=== PATIENT | female | born 1960 | race Caucasian/White ===

== ENCOUNTER 2016-07-14 12:28 | Emergency (ER) | payer MEDICAID ==
[~2016-07-14] VITALS: Ht 167.6 cm; Wt 85.7 kg
[~2016-07-14 12:28] MED LIST: TRIA25CA
[2016-07-14 13:34] VITALS: BP 165/78
[2016-07-14] MEDS ORDERED: METHOCARBAMOL 500 MG TAB PO ONE (13:45)
[2016-07-14] MEDS ORDERED: ONDANSETRON HCL 4 MG/2 ML VIAL IM ONE (13:45)
[2016-07-14] MEDS ORDERED: HYDROmorphone HCL 2 MG/ML VL IM ONE (13:45)
== END 2016-07-14 14:22 | disposition home or self-care (01) ==
LOC: ER 12:30
DX: G89.29 Other chronic pain (principal); M54.5 Low back pain; I10 Essential (primary) hypertension; F17.210 Nicotine dependence, cigarettes, uncomplicated; E78.5 Hyperlipidemia, unspecified; Z90.49 Acquired absence of other specified parts of digestive tract; Z98.51 Tubal ligation status; Z79.899 Other long term (current) drug therapy
CPT/HCPCS: 96372; 99284; J1170; J2405

== ENCOUNTER 2018-06-07 09:48 | Emergency (ER) | payer MEDICAID ==
[~2018-06-07] VITALS: Ht 170.2 cm; Wt 81.6 kg
[2018-06-07 10:55] LABS: Basophils # (auto) 0.1 uL; Basophils % (auto) 1.1 % (0.0-2.0); Eosinophils # (auto) 0.2 uL; Eosinophils % (auto) 2.1 % (0.0-7.0); Hematocrit 50.6 % (36.0-46.0); Hemoglobin 17.4 g/dL (12.2-16.2); Lymphocytes % (auto) 21.9 % (10.0-50.0); Mean Corpuscular Hemoglobin 32.1 pg (28.0-32.0); Mean Corpuscular Hgb Conc. 34.3 g/dL (32.0-36.0); Mean Corpuscular Volume 93.4 fL (80.0-100.0); Monocytes # (auto) 0.8 uL; Monocytes % (auto) 8.8 % (0.0-12.0); Neutrophils # (auto) 6.1 uL; Neutrophils % (auto) 66.1 % (37.0-80.0); Nucleated Red Blood Cells % 0.1 %; Platelet Count (auto) 218 10^3/uL (140-450); Red Blood Cells 5.42 10^6/uL (4.0-5.20); Red Cell Distribution Width 12.8 % (11.8-14.3); White Blood Cell 9.3 10^3/uL (4.4-10.8)
[2018-06-07 11:13] LABS: Urine Bacteria FEW /hpf (None Seen); Urine Blood Negative /uL (Negative); Urine Mucus FEW (None Seen); Urine Specific Gravity 1.017 (1.001-1.035); Urine WBC 10 /hpf (0 - 5)
[2018-06-07 11:18] LABS: BUN/Creatinine Ratio 15.9; Calcium 9.4 mg/dL (8.5-10.1); Potassium 3.9 mmol/L (3.5-5.1)
[2018-06-07 11:21] LABS: Bilirubin, Total 0.4 mg/dL (0.2-1.0); Total Protein 7.7 g/dL (6.4-8.2)
[2018-06-07 14:45] VITALS: BP 153/96
== END 2018-06-07 14:47 | disposition home or self-care (01) ==
LOC: ER 09:48
DX: N39.0 Urinary tract infection, site not specified (principal); E86.0 Dehydration; E78.5 Hyperlipidemia, unspecified; I10 Essential (primary) hypertension; F12.90 Cannabis use, unspecified, uncomplicated; Z85.048 Personal history of other malignant neoplasm of rectum, rectosigmoid junction, and anus; Z79.899 Other long term (current) drug therapy
CPT/HCPCS: 36415; 74176; 80053; 81001; 81025; 83690; 85025; 93005

== ENCOUNTER 2018-11-30 23:29 | Emergency (ER) | payer MEDICAID ==
[~2018-11-30] VITALS: Ht 170.2 cm; Wt 81.6 kg
[2018-12-01 04:26] VITALS: BP 115/45
== END 2018-12-01 05:34 | disposition home or self-care (01) ==
LOC: ER 23:32
DX: S52.501A Unspecified fracture of the lower end of right radius, initial encounter for closed fracture (principal); I10 Essential (primary) hypertension; E78.00 Pure hypercholesterolemia, unspecified; Z79.899 Other long term (current) drug therapy; Z90.49 Acquired absence of other specified parts of digestive tract; Z90.89 Acquired absence of other organs; W51.XXXA Accidental striking against or bumped into by another person, initial encounter; Y93.89 Activity, other specified; Y92.89 Other specified places as the place of occurrence of the external cause; Y99.8 Other external cause status
CPT/HCPCS: 29125; 73110; 73130

== ENCOUNTER 2020-11-17 21:03 | Emergency (ER) | payer MEDICAID ==
[~2020-11-17] VITALS: Ht 170.2 cm; Wt 90.7 kg
[2020-11-17 22:47] LABS: Basophils # (auto) 0.1 10 ^3/uL (0-0.2); Basophils % (auto) 0.8 % (0.0-2.0); Eosinophils # (auto) 0.3 10 ^3/uL (0-0.8); Eosinophils % (auto) 2.7 % (0.0-7.0); Hematocrit 44.3 % (36.0-46.0); Hemoglobin 15.3 g/dL (12.2-16.2); Lymphocytes # (auto) 3.3 10 ^3/uL (0.4-5.4); Lymphocytes % (auto) 29.8 % (10.0-50.0); Mean Corpuscular Hgb Conc. 34.5 g/dL (32.0-36.0); Mean Corpuscular Volume 89.6 fL (80.0-100.0); Monocytes # (auto) 0.7 10 ^3/uL (0-1.3); Monocytes % (auto) 6.6 % (0.0-12.0); Neutrophils # (auto) 6.7 10 ^3/uL (1.6-8.6); Neutrophils % (auto) 60.1 % (37.0-80.0); Nucleated Red Blood Cells % 0.9 %; Platelet Count (auto) 247 10^3/uL (140-450); Red Blood Cells 4.94 10^6/uL (4.0-5.20); Red Cell Distribution Width 13.4 % (11.8-14.3); White Blood Cell 11.1 10^3/uL (4.4-10.8)
[2020-11-17 23:02] LABS: Calcium 9.8 mg/dL (8.5-10.1); Potassium 4.2 mmol/L (3.5-5.1)
[2020-11-17 23:08] LABS: Albumin 3.9 g/dL (3.4-5.0); BUN/Creatinine Ratio 18.4; Bilirubin, Total 0.3 mg/dL (0.2-1.0); Total Protein 7.5 g/dL (6.4-8.2)
[2020-11-18 01:52] LABS: Urine Bacteria FEW /hpf (None Seen); Urine Blood Negative /uL (Negative); Urine Specific Gravity 1.015 (1.001-1.035); Urine WBC 2 /hpf (0 - 5)
[2020-11-18 08:03] VITALS: BP 160/82
== END 2020-11-18 08:04 | disposition home or self-care (01) ==
LOC: ER 21:03
DX: K57.92 Diverticulitis of intestine, part unspecified, without perforation or abscess without bleeding (principal); K44.9 Diaphragmatic hernia without obstruction or gangrene; R10.13 Epigastric pain; I10 Essential (primary) hypertension; Z90.49 Acquired absence of other specified parts of digestive tract; Z85.048 Personal history of other malignant neoplasm of rectum, rectosigmoid junction, and anus; Z98.890 Other specified postprocedural states; Z98.51 Tubal ligation status
CPT/HCPCS: 36415; 74176; 80053; 81001; 82150; 83690; 85025

== ENCOUNTER 2021-01-03 10:07 | Emergency (ER) | payer MEDICAID ==
[~2021-01-03] VITALS: Ht 175.3 cm; Wt 86.2 kg
[2021-01-03 10:59] LABS: Basophils # (auto) 0.1 10 ^3/uL (0-0.2); Basophils % (auto) 0.8 % (0.0-2.0); Eosinophils # (auto) 0.2 10 ^3/uL (0-0.8); Eosinophils % (auto) 1.3 % (0.0-7.0); Hematocrit 41.6 % (36.0-46.0); Hemoglobin 13.9 g/dL (12.2-16.2); Lymphocytes # (auto) 3.2 10 ^3/uL (0.4-5.4); Lymphocytes % (auto) 26.7 % (10.0-50.0); Mean Corpuscular Hemoglobin 30.8 pg (28.0-32.0); Mean Corpuscular Hgb Conc. 33.3 g/dL (32.0-36.0); Mean Corpuscular Volume 92.4 fL (80.0-100.0); Monocytes # (auto) 0.8 10 ^3/uL (0-1.3); Monocytes % (auto) 6.3 % (0.0-12.0); Neutrophils # (auto) 7.9 10 ^3/uL (1.6-8.6); Neutrophils % (auto) 64.9 % (37.0-80.0); Red Cell Distribution Width 13.4 % (11.8-14.3); White Blood Cell 12.2 10^3/uL (4.4-10.8)
[2021-01-03 11:24] LABS: Albumin 3.3 g/dL (3.4-5.0); Anion Gap 8 (5-15); Blood Urea Nitrogen 52 mg/dL (7-18); Calcium 8.9 mg/dL (8.5-10.1); Carbon Dioxide 23 mmol/L (21-32); Chloride 106 mmol/L (98-107); Glucose 217 mg/dL (74-106); Magnesium 2.1 mg/dL (1.6-2.6); Potassium 4.1 mmol/L (3.5-5.1); Sodium 137 mmol/L (136-145)
[2021-01-03 11:28] LABS: Alanine Aminotransferase 228 U/L (13-56); Alkaline Phosphatase 190 U/L (45-117); Aspartate Aminotransferase 54 U/L (15-37); BUN/Creatinine Ratio 59.1; Bilirubin, Total 0.6 mg/dL (0.2-1.0); GFR African American 84 mL/min; GFR Non-African American 70 mL/min
[2021-01-03] MEDS ORDERED: IPRATROPIUM BROM 0.5 MG/2.5ML INH SOL NEB ONE (12:30)
[2021-01-03] MEDS ORDERED: ALBUTEROL SULF 2.5 MG/0.5ML(0.5%) NEB SOLN NEB ONE (12:30)
[2021-01-03] MEDS ORDERED: SODIUM CHLORIDE 0.9% 1,000 ML IV ONE ×2 (12:30→15:15)
[2021-01-03] MEDS ORDERED: ONDANSETRON HCL 4 MG/2 ML VIAL IV ONE (12:30)
[2021-01-03] MEDS ORDERED: METOCLOPRAMIDE HCL 5MG/ml INJ 2ml VIAL IV ONE (15:15)
[2021-01-03 17:12] LABS: Urine Bacteria FEW /hpf (None Seen); Urine Blood Negative /uL (Negative); Urine Hyaline Cast FEW /lpf (0 - 2); Urine Specific Gravity 1.019 (1.001-1.035); Urine WBC <1 /hpf (0 - 5)
[2021-01-03 22:05] VITALS: BP 157/84
== END 2021-01-03 23:30 | disposition home or self-care (01) ==
LOC: ER 10:07
DX: R06.02 Shortness of breath (principal); M54.9 Dorsalgia, unspecified; R11.0 Nausea; J44.9 Chronic obstructive pulmonary disease, unspecified; E78.5 Hyperlipidemia, unspecified; I10 Essential (primary) hypertension; Z90.49 Acquired absence of other specified parts of digestive tract; Z90.89 Acquired absence of other organs; Z79.899 Other long term (current) drug therapy
CPT/HCPCS: 36415; 71045; 80053; 81001; 83735; 84484; 85025; 93005; 94640; 96361; 96374; 96375; 99285; J2405; J2765; J7030; J7644

== ENCOUNTER 2021-12-01 02:01 | Emergency (ER) | payer MEDICAID ==
[~2021-12-01] VITALS: Ht 167.6 cm; Wt 88.0 kg
[2021-12-01] MEDS: IPRATROPIUM BROM 0.5 MG/2.5ML INH SOL NEB ONE ×2 (03:56→04:01)
[2021-12-01] MEDS: ALBUTEROL SULF 2.5 MG/0.5ML(0.5%) NEB SOLN NEB ONE ×2 (03:56→04:01)
[2021-12-01 04:03] LABS: Basophils # (auto) 0.1 10 ^3/uL (0-0.2); Eosinophils # (auto) 0.1 10 ^3/uL (0-0.8); Mean Corpuscular Volume 82.2 fL (80.0-100.0)
[2021-12-01 04:05] LABS: Basophils % (auto) 0.9 % (0.0-2.0); Eosinophils % (auto) 0.8 % (0.0-7.0); Hematocrit 33.2 % (36.0-46.0); Hemoglobin 10.7 g/dL (12.2-16.2); Lymphocytes # (auto) 1.5 10 ^3/uL (0.4-5.4); Lymphocytes % (auto) 16.6 % (10.0-50.0); Mean Corpuscular Hemoglobin 26.4 pg (28.0-32.0); Mean Corpuscular Hgb Conc. 32.2 g/dL (32.0-36.0); Monocytes # (auto) 0.7 10 ^3/uL (0-1.3); Monocytes % (auto) 7.6 % (0.0-12.0); Neutrophils # (auto) 6.5 10 ^3/uL (1.6-8.6); Neutrophils % (auto) 74.1 % (37.0-80.0); Red Blood Cells 4.04 10^6/uL (4.0-5.20); White Blood Cell 8.8 10^3/uL (4.4-10.8)
[2021-12-01 04:08] LABS: INR 0.99 (0.9-1.15)
[2021-12-01 04:23] LABS: BUN/Creatinine Ratio 11.6; Calcium 9.2 mg/dL (8.5-10.1); Potassium 3.4 mmol/L (3.5-5.1)
[2021-12-01 04:26] LABS: Bilirubin, Total 0.3 mg/dL (0.2-1.0); Total Protein 7.3 g/dL (6.4-8.2)
[2021-12-01 06:30] VITALS: BP 127/85
== END 2021-12-01 05:11 | disposition home or self-care (01) ==
LOC: ER 02:01 → EDBD 02:01 → ER 05:11
DX: R06.02 Shortness of breath (principal); T59.811A Toxic effect of smoke, accidental (unintentional), initial encounter; J44.9 Chronic obstructive pulmonary disease, unspecified; E78.5 Hyperlipidemia, unspecified; I10 Essential (primary) hypertension; Y92.89 Other specified places as the place of occurrence of the external cause
CPT/HCPCS: 36415; 80053; 83880; 84484; 85025; 85610; 85730; 93005

== ENCOUNTER 2023-08-31 10:52 | Inpatient (IN) | payer MEDICAID ==
[~2023-08-31] VITALS: Ht 170.2 cm; Wt 86.7 kg
[2023-08-31 11:40] LABS: Basophils # (auto) 0.1 10 ^3/uL (0-0.2); Eosinophils # (auto) 0.1 10 ^3/uL (0-0.8); Monocytes # (auto) 1.4 10 ^3/uL (0-1.3)
[2023-08-31 11:42] LABS: Basophils % (auto) 0.8 % (0.0-2.0); Eosinophils % (auto) 0.8 % (0.0-7.0); Hematocrit 40.6 % (36.0-46.0); Hemoglobin 13.4 g/dL (12.2-16.2); Lymphocytes # (auto) 2.6 10 ^3/uL (0.4-5.4); Lymphocytes % (auto) 16.4 % (10.0-50.0); Mean Corpuscular Hemoglobin 28.4 pg (28.0-32.0); Mean Corpuscular Volume 85.9 fL (80.0-100.0); Monocytes % (auto) 8.8 % (0.0-12.0); Neutrophils # (auto) 11.6 10 ^3/uL (1.6-8.6); Neutrophils % (auto) 73.2 % (37.0-80.0); Red Blood Cells 4.72 10^6/uL (4.0-5.20); Red Cell Distribution Width 14.2 % (11.8-14.3); White Blood Cell 15.8 10^3/uL (4.4-10.8)
[2023-08-31 11:51] LABS: Alanine Aminotransferase 69 U/L (7-40); Albumin 3.9 g/dL (3.2-4.8); Alkaline Phosphatase 597 U/L (46-116); Anion Gap 2 (5-15); Aspartate Aminotransferase 29 U/L (13-40); BUN/Creatinine Ratio 8.9 (10.0-20.0); Bilirubin, Total 0.4 mg/dL (0.2-1.0); Blood Urea Nitrogen 7 mg/dL (9-23); Calcium 9.6 mg/dL (8.7-10.4); Carbon Dioxide 27 mmol/L (20-30); Chloride 103 mmol/L (98-107); Glucose 185 mg/dL (74-106); Lipase 31 U/L (12-53); Potassium 3.9 mmol/L (3.5-5.1); Sodium 132 mmol/L (136-145); Total Protein 7.2 g/dL (5.7-8.2)
[2023-08-31] MEDS: metroNIDAZOLE 500MG/100ML 100 ML IV ONE (12:20)
[2023-08-31 12:37] LABS: Urine Bacteria MOD /hpf (None Seen); Urine Blood Negative /uL (Negative); Urine Clarity Clear (Clear); Urine Color Yellow (Yellow); Urine Mucus FEW (None Seen); Urine Protein, UAD TRACE (Negative); Urine Specific Gravity 1.018 (1.001-1.035); Urine Urobilinogen Normal (Negative); Urine WBC 7 /hpf (0 - 5); Urine pH 7.5 (5.0-8.0)
[2023-08-31] MEDS ORDERED: MORPHINE SULFATE 4 MG/ML SYR/VIAL IV ONE (12:45)
[2023-08-31] MEDS: HYDROcodone-ACET 10/325MG TAB PO ONE (12:55)
[2023-08-31] MEDS: ONDANSETRON HCL 4 MG/2 ML VIAL IV ONE (12:56)
[2023-08-31] MEDS: PIPERACILLIN-TAZOB 3.375GM 100 ML IV ONE (12:56)
[2023-08-31] MEDS: SODIUM CHLORIDE 0.9% 1,000 ML IV SCH (13:30)
[2023-08-31] MEDS ORDERED: DEXTROSE (50%) 50ML SYRG IV PRN (14:15)
[2023-08-31 14:47] VITALS: PULSE 74; RESP 19; O2SAT 96
[2023-08-31] MEDS: ONDANSETRON HCL 4 MG/2 ML VIAL IV PRN (16:36)
[2023-08-31] MEDS: MORPHINE SULFATE INJ 2 MG/ml SYRG IV PRN (16:37)
[2023-08-31] MEDS: IOHEXOL 300 MG/ML 100ML BOTTLE IJ ONE (16:40)
[2023-08-31] MEDS: InsuLIN REG 1unit/0.01ml Soln (100units/ml) SC SCH (19:52)
[2023-08-31] MEDS: ACCU-CHEK COMFORT CURVE STRIP VI SCH (19:52)
[2023-08-31 20:47] LABS: INR 1.04 (0.9-1.15); Prothrombin Time 10.9 sec (9.3-11.8)
[2023-08-31] MEDS: PIPERACILLIN-TAZOB 3.375GM 100 ML IV SCH (22:36)
[2023-09-01] VITALS (8 sets, daily range): BP systolic 107–156; BP diastolic 50–83; PULSE 72–92; RESP 17–19; TEMP 97.5–99.1; O2SAT 93–97
[2023-09-01 06:33] LABS: Basophils # (auto) 0.1 10 ^3/uL (0-0.2); Basophils % (auto) 0.8 % (0.0-2.0); Eosinophils # (auto) 0.2 10 ^3/uL (0-0.8); Eosinophils % (auto) 1.9 % (0.0-7.0); Hematocrit 38.7 % (36.0-46.0); Hemoglobin 12.9 g/dL (12.2-16.2); Lymphocytes # (auto) 1.6 10 ^3/uL (0.4-5.4); Lymphocytes % (auto) 15.5 % (10.0-50.0); Mean Corpuscular Hemoglobin 28.8 pg (28.0-32.0); Mean Corpuscular Hgb Conc. 33.4 g/dL (32.0-36.0); Mean Corpuscular Volume 86.3 fL (80.0-100.0); Monocytes % (auto) 9.6 % (0.0-12.0); Neutrophils # (auto) 7.5 10 ^3/uL (1.6-8.6); Neutrophils % (auto) 72.2 % (37.0-80.0); Red Blood Cells 4.48 10^6/uL (4.0-5.20); Red Cell Distribution Width 14.3 % (11.8-14.3); White Blood Cell 10.3 10^3/uL (4.4-10.8)
[2023-09-01 06:50] LABS: Alanine Aminotransferase 372 U/L (7-40); Albumin 3.8 g/dL (3.2-4.8); Anion Gap 3 (5-15); Aspartate Aminotransferase 412 U/L (13-40); BUN/Creatinine Ratio 9.1 (10.0-20.0); Bilirubin, Total 0.9 mg/dL (0.2-1.0); Blood Urea Nitrogen 7 mg/dL (9-23); Calcium 9.3 mg/dL (8.5-10.1); Carbon Dioxide 26 mmol/L (20-30); Chloride 105 mmol/L (98-107); Glucose 120 mg/dL (74-106); Potassium 3.4 mmol/L (3.5-5.1); Sodium 134 mmol/L (136-145); Total Protein 6.5 g/dL (5.7-8.2)
[2023-09-01 06:57] LABS: Alkaline Phosphatase 1197 U/L (46-116)
[2023-09-01] MEDS: POTASSIUM CHLORIDE 40 MEQ, LIDOCAINE 1% (LOCAL ANESTH.) 4 ML in SODIUM CHL 0.9% 250 ML IV ONE (09:26)
[2023-09-01] MEDS: hydrALAZINE HCL 20 MG/ML VL IV PRN (22:07)
[2023-09-01] MEDS: DOCUSATE SOD 100 MG CAP PO PRN (22:13)
[2023-09-02] VITALS (8 sets, daily range): BP systolic 136–163; BP diastolic 63–97; PULSE 73–85; RESP 16–20; TEMP 98.1–99; O2SAT 94–100
[2023-09-02] MEDS: HYDROcodone-ACET 5/325MG TAB PO PRN (02:51)
[2023-09-02] MEDS ORDERED: ASPI-325 PO (03:23)
[2023-09-02] MEDS ORDERED: ESCI1TAB36 PO (03:23)
[2023-09-02] MEDS ORDERED: ALPR0.255 PO (03:23)
[2023-09-02] MEDS ORDERED: ATOR20TA50 PO (03:23)
[2023-09-02] MEDS ORDERED: ATEN-60 PO (03:23)
[2023-09-02] MEDS ORDERED: MEMA1TAB3 PO (03:23)
[2023-09-02] MEDS ORDERED: LOSA100T25 PO (03:29)
[2023-09-02 05:47] LABS: Basophils # (auto) 0.1 10 ^3/uL (0-0.2); Basophils % (auto) 0.6 % (0.0-2.0); Eosinophils # (auto) 0.1 10 ^3/uL (0-0.8); Eosinophils % (auto) 0.8 % (0.0-7.0); Hematocrit 36.9 % (36.0-46.0); Hemoglobin 12.1 g/dL (12.2-16.2); Lymphocytes # (auto) 1.5 10 ^3/uL (0.4-5.4); Lymphocytes % (auto) 11.3 % (10.0-50.0); Mean Corpuscular Hemoglobin 28.5 pg (28.0-32.0); Mean Corpuscular Hgb Conc. 32.9 g/dL (32.0-36.0); Mean Corpuscular Volume 86.5 fL (80.0-100.0); Monocytes % (auto) 7.2 % (0.0-12.0); Neutrophils # (auto) 10.9 10 ^3/uL (1.6-8.6); Neutrophils % (auto) 80.1 % (37.0-80.0); Red Blood Cells 4.27 10^6/uL (4.0-5.20); Red Cell Distribution Width 14.3 % (11.8-14.3); White Blood Cell 13.6 10^3/uL (4.4-10.8)
[2023-09-02 06:07] LABS: Alanine Aminotransferase 199 U/L (7-40); Albumin 3.4 g/dL (3.2-4.8); Alkaline Phosphatase 899 U/L (46-116); Anion Gap 3 (5-15); Aspartate Aminotransferase 102 U/L (13-40); BUN/Creatinine Ratio 8.8 (10.0-20.0); Bilirubin, Total 0.5 mg/dL (0.2-1.0); Blood Urea Nitrogen 5 mg/dL (9-23); Calcium 9.2 mg/dL (8.7-10.4); Carbon Dioxide 24 mmol/L (20-30); Chloride 108 mmol/L (98-107); Glucose 128 mg/dL (74-106); Potassium 3.1 mmol/L (3.5-5.1); Sodium 135 mmol/L (136-145); Total Protein 6.4 g/dL (5.7-8.2)
[2023-09-02 06:56] LABS: Amphetamine Screen, Urine Neg (NEGATIVE); Barbiturate Scree,Urine Neg (NEGATIVE); Benzodiazephine Screen, Urine Neg (NEGATIVE); Cocaine Screen, Urine Neg (NEGATIVE); Opiate Scree,Urine Pos (NEGATIVE)
[2023-09-02 06:57] LABS: Cannabinoid Screen, Urine Pos (NEGATIVE); Phencyclidine Screen, Urine Neg (NEGATIVE)
[2023-09-02] MEDS: PIPERACILLIN-TAZOB 3.375GM 100 ML IV SCH (12:29)
[2023-09-02] MEDS: HYDROmorphone HCL 2 MG/ML VL/or syr IV PRN (12:46)
[2023-09-02] MEDS: POTASSIUM CHLORIDE 60 MEQ, LIDOCAINE 1% (LOCAL ANESTH.) 6 ML in SODIUM CHL 0.9% 500 ML IV ONE (17:15)
[2023-09-02] MEDS ORDERED: DEXTROSE (50%) 50ML SYRG IV SCH (20:00)
[2023-09-02] MEDS ORDERED: TPN PER PHARMACY 0 ML IV SCH (20:00)
[2023-09-02] MEDS: MORPHINE SULFATE INJ 2 MG/ml SYRG IV ONE (21:24)
[2023-09-02] MEDS: KETOROLAC TROMETH 30 MG/ML 1ML VIAL IV ONE (23:13)
[2023-09-02] MEDS: AMINO ACID INFUSION IN D10W 1,000 ML IV SCH (23:14)
[2023-09-03] VITALS (7 sets, daily range): BP systolic 153–174; BP diastolic 71–92; PULSE 76–91; RESP 16–24; TEMP 97.4–98.7; O2SAT 94–98
[2023-09-03] MEDS: InsuLIN REG 1unit/0.01ml Soln (100units/ml) SC SCH (00:51)
[2023-09-03] MEDS: ACCU-CHEK COMFORT CURVE STRIP VI SCH (00:51)
[2023-09-03 06:51] LABS: Basophils # (auto) 0.1 10 ^3/uL (0-0.2); Basophils % (auto) 1.2 % (0.0-2.0); Eosinophils # (auto) 0.2 10 ^3/uL (0-0.8); Eosinophils % (auto) 1.9 % (0.0-7.0); Hematocrit 38.4 % (36.0-46.0); Hemoglobin 12.3 g/dL (12.2-16.2); Lymphocytes # (auto) 2.3 10 ^3/uL (0.4-5.4); Lymphocytes % (auto) 19.1 % (10.0-50.0); Mean Corpuscular Hemoglobin 28.1 pg (28.0-32.0); Mean Corpuscular Hgb Conc. 32.1 g/dL (32.0-36.0); Mean Corpuscular Volume 87.6 fL (80.0-100.0); Monocytes % (auto) 8.5 % (0.0-12.0); Neutrophils # (auto) 8.3 10 ^3/uL (1.6-8.6); Neutrophils % (auto) 69.3 % (37.0-80.0); Nucleated Red Blood Cells % 0.2 %; Red Blood Cells 4.39 10^6/uL (4.0-5.20); Red Cell Distribution Width 14.3 % (11.8-14.3); White Blood Cell 12.1 10^3/uL (4.4-10.8)
[2023-09-03 07:15] LABS: Alanine Aminotransferase 127 U/L (7-40); Albumin 3.3 g/dL (3.2-4.8); Alkaline Phosphatase 759 U/L (46-116); Anion Gap 5 (5-15); Aspartate Aminotransferase 42 U/L (13-40); Calcium 8.9 mg/dL (8.7-10.4); Carbon Dioxide 21 mmol/L (20-30); Chloride 110 mmol/L (98-107); Glucose 131 mg/dL (74-106); Magnesium 1.8 mg/dL (1.6-2.6); Potassium 3.7 mmol/L (3.5-5.1); Sodium 136 mmol/L (136-145)
[2023-09-03 07:16] LABS: BUN/Creatinine Ratio 9.8 (10.0-20.0); Bilirubin, Total 0.4 mg/dL (0.2-1.0); Blood Urea Nitrogen < 5 mg/dL (9-23); Total Protein 6.3 g/dL (5.7-8.2)
[2023-09-03 09:07] LABS: Chlamydia Trachomatis, NAA Negative (Negative); Neisseria gonorrhoeae, NAA Negative (Negative)
[2023-09-03 09:08] LABS: INR 1.04 (0.9-1.15); Partial Thromboplastin Time 28.6 SEC (24.5-34.5); Prothrombin Time 10.9 sec (9.3-11.8)
[2023-09-03] MEDS: LIDOCAINE 1% (LOCAL ANESTH.) PF 5ml SDV ID ONE (14:43)
[2023-09-03] MEDS: cefTRIAXone 1GM/50ML D5W 50 ML IV SCH (15:09)
[2023-09-03] MEDS: POTASSIUM PHOSPHATE 26.4 MEQ in SODIUM CHL 0.9% 100 ML IV ONE (16:01)
[2023-09-03] MEDS: SODIUM CHLOR 0.9% PF (SALINE LOCK) 10ML VIAL/SYR IV SCH (22:38)
[2023-09-04] VITALS (8 sets, daily range): BP systolic 111–167; BP diastolic 70–107; PULSE 78–108; RESP 18–20; TEMP 97.9–98.7; O2SAT 94–100
[2023-09-04 06:59] LABS: Basophils # (auto) 0.1 10 ^3/uL (0-0.2); Eosinophils # (auto) 0.1 10 ^3/uL (0-0.8); Red Cell Distribution Width 14.2 % (11.8-14.3)
[2023-09-04 07:01] LABS: Eosinophils % (auto) 0.8 % (0.0-7.0); Hematocrit 41.9 % (36.0-46.0); Lymphocytes # (auto) 1.6 10 ^3/uL (0.4-5.4); Lymphocytes % (auto) 13.2 % (10.0-50.0); Mean Corpuscular Hemoglobin 28.6 pg (28.0-32.0); Mean Corpuscular Hgb Conc. 33.5 g/dL (32.0-36.0); Mean Corpuscular Volume 85.4 fL (80.0-100.0); Monocytes # (auto) 0.7 10 ^3/uL (0-1.3); Monocytes % (auto) 6.4 % (0.0-12.0); Neutrophils # (auto) 9.3 10 ^3/uL (1.6-8.6); Neutrophils % (auto) 78.6 % (37.0-80.0); Red Blood Cells 4.91 10^6/uL (4.0-5.20); White Blood Cell 11.8 10^3/uL (4.4-10.8)
[2023-09-04 07:22] LABS: Alanine Aminotransferase 105 U/L (7-40); Albumin 4.1 g/dL (3.2-4.8); Alkaline Phosphatase 730 U/L (46-116); Anion Gap 8 (5-15); Aspartate Aminotransferase 22 U/L (13-40); Bilirubin, Total 0.4 mg/dL (0.2-1.0); Calcium 9.4 mg/dL (8.5-10.1); Carbon Dioxide 20 mmol/L (20-30); Chloride 111 mmol/L (98-107); Glucose 147 mg/dL (74-106); Potassium 3.2 mmol/L (3.5-5.1); Sodium 139 mmol/L (136-145); Triglycerides 128 mg/dL (< 150)
[2023-09-04 07:23] LABS: Total Protein 7.4 g/dL (5.7-8.2)
[2023-09-04 07:26] LABS: BUN/Creatinine Ratio 8.9 (10.0-20.0); Blood Urea Nitrogen < 5 mg/dL (9-23)
[2023-09-04 07:37] LABS: Magnesium 1.7 mg/dL (1.6-2.6)
[2023-09-04] MEDS ORDERED: POTASSIUM CHLORIDE 40 MEQ, LIDOCAINE 1% (LOCAL ANESTH.) 4 ML in SODIUM CHL 0.9% 250 ML IV ONE (10:00)
[2023-09-04] MEDS: POTASSIUM CHL 20MEQ/100ML 100 ML IV SCH (10:59)
[2023-09-04] MEDS ORDERED: D5W/SOD CHL 0.45%/KCL 40MEQ 1,000 ML IV SCH (11:30)
[2023-09-04] MEDS: LABETALOL HCL 5 MG/ML 4ML SYRINGE IV SCH (11:38)
[2023-09-04] MEDS: metroNIDAZOLE 500MG/100ML 100 ML IV SCH (15:13)
[2023-09-04] MEDS: IOHEXOL 300 MG/ML 100ML BOTTLE IJ ONE (16:12)
[2023-09-04] MEDS: EZ PAQUE SUSP 12OZ BTL ONE (16:12)
[2023-09-04] MEDS: GADOTERATE MEG 10 MMOL/20ml INJ (0.5MMOL/ml) IV ONE (16:12)
[2023-09-04] MEDS: OMNIPAQUE 12mg/ml 500ml ORAL SOLUTION PO ONE (16:12)
[2023-09-04] MEDS: D5W/SOD CHL 0.45% 1,000 ML IV SCH (18:39)
[2023-09-04] MEDS: TPN PER PHARMACY IV NR (20:26)
[2023-09-05] VITALS (8 sets, daily range): BP systolic 117–169; BP diastolic 65–80; PULSE 70–105; RESP 17–20; TEMP 97.9–98.3; O2SAT 93–96
[2023-09-05 06:24] LABS: Basophils # (auto) 0.1 10 ^3/uL (0-0.2); Basophils % (auto) 0.8 % (0.0-2.0); Eosinophils # (auto) 0.1 10 ^3/uL (0-0.8); Eosinophils % (auto) 1.1 % (0.0-7.0); Hematocrit 36.6 % (36.0-46.0); Hemoglobin 12.6 g/dL (12.2-16.2); Lymphocytes # (auto) 1.4 10 ^3/uL (0.4-5.4); Lymphocytes % (auto) 13.8 % (10.0-50.0); Mean Corpuscular Hemoglobin 29.2 pg (28.0-32.0); Mean Corpuscular Hgb Conc. 34.3 g/dL (32.0-36.0); Mean Corpuscular Volume 85.1 fL (80.0-100.0); Monocytes # (auto) 0.8 10 ^3/uL (0-1.3); Monocytes % (auto) 8.1 % (0.0-12.0); Neutrophils # (auto) 7.6 10 ^3/uL (1.6-8.6); Neutrophils % (auto) 76.2 % (37.0-80.0); Red Cell Distribution Width 14.2 % (11.8-14.3)
[2023-09-05 06:42] LABS: Alanine Aminotransferase 63 U/L (7-40); Albumin 3.4 g/dL (3.2-4.8); Alkaline Phosphatase 521 U/L (46-116); Anion Gap 4 (5-15); Aspartate Aminotransferase 12 U/L (13-40); BUN/Creatinine Ratio 10.7 (10.0-20.0); Blood Urea Nitrogen 6 mg/dL (9-23); Calcium 8.9 mg/dL (8.7-10.4); Carbon Dioxide 26 mmol/L (20-30); Chloride 107 mmol/L (98-107); Glucose 208 mg/dL (74-106); Magnesium 1.7 mg/dL (1.6-2.6); Potassium 2.8 mmol/L (3.5-5.1); Sodium 137 mmol/L (136-145)
[2023-09-05 06:43] LABS: Bilirubin, Total 0.3 mg/dL (0.2-1.0); Phosphorus 2.2 mg/dL (2.4-5.1); Total Protein 6.1 g/dL (5.7-8.2)
[2023-09-05] MEDS: POTASSIUM CHL 20MEQ/100ML 100 ML IV SCH (11:34)
[2023-09-05] MEDS ORDERED: POTASSIUM PHOSPHATE 22 MEQ in SODIUM CHL 0.9% 100 ML IV ONE (17:00)
[2023-09-05] MEDS: TPN PER PHARMACY IV NR (20:25)
[2023-09-05] MEDS: POTASSIUM PHOSPHATE 22 MEQ in SODIUM CHL 0.9% 100 ML IV ONE (20:25)
[2023-09-06] VITALS (9 sets, daily range): BP systolic 113–162; BP diastolic 68–99; PULSE 74–104; RESP 17–22; TEMP 98.3–98.9; O2SAT 93–100
[2023-09-06 07:14] LABS: Alanine Aminotransferase 51 U/L (7-40); Albumin 3.6 g/dL (3.2-4.8); Alkaline Phosphatase 472 U/L (46-116); Anion Gap 6 (5-15); Aspartate Aminotransferase 25 U/L (13-40); BUN/Creatinine Ratio 15.1 (10.0-20.0); Bilirubin, Total 0.3 mg/dL (0.2-1.0); Blood Urea Nitrogen 8 mg/dL (9-23); Calcium 8.9 mg/dL (8.5-10.1); Carbon Dioxide 24 mmol/L (20-30); Chloride 110 mmol/L (98-107); Glucose 146 mg/dL (74-106); Phosphorus 3.1 mg/dL (2.4-5.1); Sodium 140 mmol/L (136-145); Total Protein 6.4 g/dL (5.7-8.2)
[2023-09-06 07:29] LABS: Magnesium 1.9 mg/dL (1.6-2.6)
[2023-09-06] MEDS: POTASSIUM PHOSPHATE 22 MEQ in SODIUM CHL 0.9% 100 ML IV ONE (13:59)
[2023-09-06] MEDS: TPN PER PHARMACY IV NR (20:28)
[2023-09-07] VITALS (9 sets, daily range): BP systolic 129–171; BP diastolic 66–94; PULSE 77–94; RESP 17–20; TEMP 97.5–98.3; O2SAT 95–96
[2023-09-07 05:41] LABS: Basophils # (auto) 0.1 10 ^3/uL (0-0.2); Basophils % (auto) 1.1 % (0.0-2.0); Eosinophils # (auto) 0.4 10 ^3/uL (0-0.8); Eosinophils % (auto) 3.8 % (0.0-7.0); Hematocrit 37.4 % (36.0-46.0); Hemoglobin 12.2 g/dL (12.2-16.2); Lymphocytes # (auto) 2.1 10 ^3/uL (0.4-5.4); Lymphocytes % (auto) 22.5 % (10.0-50.0); Mean Corpuscular Hemoglobin 28.2 pg (28.0-32.0); Mean Corpuscular Hgb Conc. 32.7 g/dL (32.0-36.0); Mean Corpuscular Volume 86.3 fL (80.0-100.0); Monocytes # (auto) 1.1 10 ^3/uL (0-1.3); Monocytes % (auto) 11.3 % (0.0-12.0); Neutrophils # (auto) 5.8 10 ^3/uL (1.6-8.6); Neutrophils % (auto) 61.3 % (37.0-80.0); Nucleated Red Blood Cells % 0.1 %; Red Blood Cells 4.34 10^6/uL (4.0-5.20); Red Cell Distribution Width 14.6 % (11.8-14.3); White Blood Cell 9.5 10^3/uL (4.4-10.8)
[2023-09-07 05:50] LABS: Alanine Aminotransferase 42 U/L (7-40); Alkaline Phosphatase 380 U/L (46-116); Anion Gap 5 (5-15); BUN/Creatinine Ratio 12.7 (10.0-20.0); Blood Urea Nitrogen 7 mg/dL (9-23); Carbon Dioxide 27 mmol/L (20-30); Chloride 107 mmol/L (98-107); Glucose 142 mg/dL (74-106); Magnesium 2.2 mg/dL (1.6-2.6); Potassium 3.2 mmol/L (3.5-5.1); Sodium 139 mmol/L (136-145)
[2023-09-07 05:51] LABS: Albumin 3.2 g/dL (3.2-4.8); Aspartate Aminotransferase 23 U/L (13-40); Bilirubin, Total 0.2 mg/dL (0.2-1.0); Phosphorus 2.6 mg/dL (2.4-5.1)
[2023-09-07 05:52] LABS: Total Protein 5.9 g/dL (5.7-8.2)
[2023-09-07] MEDS: POTASSIUM CHLORIDE 60 MEQ, LIDOCAINE 1% (LOCAL ANESTH.) 6 ML in SODIUM CHL 0.9% 500 ML IV ONE (10:21)
[2023-09-07] MEDS: PANTOPRAZOLE 40 MG/10 ML VIAL INJ IV SCH (10:21)
[2023-09-07] MEDS: TPN PER PHARMACY IV NR (20:11)
[2023-09-08] VITALS (7 sets, daily range): BP systolic 120–176; BP diastolic 63–92; PULSE 80–100; RESP 16–19; TEMP 97.7–98.3; O2SAT 92–96
[2023-09-08 05:12] LABS: Alanine Aminotransferase 37 U/L (7-40); Albumin 3.2 g/dL (3.2-4.8); Alkaline Phosphatase 349 U/L (46-116); Anion Gap 3 (5-15); Aspartate Aminotransferase 24 U/L (13-40); BUN/Creatinine Ratio 20.4 (10.0-20.0); Bilirubin, Total 0.3 mg/dL (0.2-1.0); Blood Urea Nitrogen 10 mg/dL (9-23); Calcium 8.7 mg/dL (8.7-10.4); Carbon Dioxide 26 mmol/L (20-30); Chloride 109 mmol/L (98-107); Glucose 147 mg/dL (74-106); Magnesium 2.3 mg/dL (1.6-2.6); Phosphorus 2.5 mg/dL (2.4-5.1); Potassium 3.8 mmol/L (3.5-5.1); Sodium 138 mmol/L (136-145)
[2023-09-08 05:13] LABS: Total Protein 5.9 g/dL (5.7-8.2)
[2023-09-08] MEDS: SODIUM CHLORIDE 0.9% 1,000 ML IV SCH (09:00)
[2023-09-08] MEDS: SODIUM PHOSP 20MEQ(15MMOL) IN NS 100 ML IV ONE (11:12)
[2023-09-08] MEDS: LOSARTAN POTASSIUM 50 MG TAB PO ONE (17:41)
[2023-09-08] MEDS: hydroCHLOROthiazide 25 MG TAB PO ONE (17:41)
[2023-09-08] MEDS: TPN PER PHARMACY IV NR ×2 (20:44)
[2023-09-09] VITALS (8 sets, daily range): BP systolic 114–173; BP diastolic 66–88; PULSE 73–99; RESP 15–22; TEMP 97–97.8; O2SAT 95–100
[2023-09-09 05:54] LABS: Basophils # (auto) 0.1 10 ^3/uL (0-0.2); Basophils % (auto) 0.9 % (0.0-2.0); Eosinophils # (auto) 0.4 10 ^3/uL (0-0.8); Eosinophils % (auto) 3.9 % (0.0-7.0); Hematocrit 37.9 % (36.0-46.0); Hemoglobin 12.7 g/dL (12.2-16.2); Lymphocytes # (auto) 2.5 10 ^3/uL (0.4-5.4); Lymphocytes % (auto) 23.7 % (10.0-50.0); Mean Corpuscular Hemoglobin 28.8 pg (28.0-32.0); Mean Corpuscular Hgb Conc. 33.4 g/dL (32.0-36.0); Mean Corpuscular Volume 86.3 fL (80.0-100.0); Monocytes # (auto) 0.9 10 ^3/uL (0-1.3); Monocytes % (auto) 8.4 % (0.0-12.0); Neutrophils # (auto) 6.7 10 ^3/uL (1.6-8.6); Neutrophils % (auto) 63.1 % (37.0-80.0); Red Blood Cells 4.39 10^6/uL (4.0-5.20); Red Cell Distribution Width 14.7 % (11.8-14.3); White Blood Cell 10.6 10^3/uL (4.4-10.8)
[2023-09-09 06:07] LABS: Alanine Aminotransferase 32 U/L (7-40); Albumin 3.3 g/dL (3.2-4.8); Alkaline Phosphatase 313 U/L (46-116); Anion Gap 5 (5-15); Aspartate Aminotransferase 19 U/L (13-40); Calcium 8.9 mg/dL (8.7-10.4); Carbon Dioxide 25 mmol/L (20-30); Chloride 107 mmol/L (98-107); Glucose 150 mg/dL (74-106); Magnesium 2.2 mg/dL (1.6-2.6); Potassium 3.6 mmol/L (3.5-5.1); Sodium 137 mmol/L (136-145)
[2023-09-09 06:08] LABS: Bilirubin, Total 0.3 mg/dL (0.2-1.0); Phosphorus 3.3 mg/dL (2.4-5.1); Total Protein 5.9 g/dL (5.7-8.2)
[2023-09-09 06:34] LABS: BUN/Creatinine Ratio 23.1 (10.0-20.0); Blood Urea Nitrogen 12 mg/dL (9-23); Triglycerides 88 mg/dL (< 150)
[2023-09-09] MEDS ORDERED: LOSARTAN POTASSIUM 50 MG TAB PO SCH (10:00)
[2023-09-09] MEDS: METOPROLOL TARTRATE 25 MG TAB PO SCH (10:11)
[2023-09-09] MEDS: hydroCHLOROthiazide 25 MG TAB PO SCH (10:12)
[2023-09-09] MEDS: LOSARTAN POTASSIUM 50 MG TAB PO SCH (10:13)
[2023-09-09] MEDS ORDERED: CIPR-173 PO (13:08)
[2023-09-09] MEDS ORDERED: METR-344 PO (13:08)
[2023-09-09] MEDS: metroNIDAZOLE 500 MG TAB PO SCH (14:03)
[2023-09-09] MEDS: OXYCODONE W/ ACETAMINOPHEN 5/325MG TABLET PO PRN (14:06)
[2023-09-09] MEDS ORDERED: TPN PER PHARMACY IV NR (20:00)
== END 2023-09-09 17:00 | disposition home or self-care (01) | DRG 244 ==
LOC: ER 10:52 → OVERFLOW 14:16 → CENTRAL 09-01 01:10 → TELE-CENTR 09-04 14:02
PROVIDERS: ADMIT Internal Medicine; ATTEND Internal Medicine
PROC: 02HV33Z Insertion of Infusion Device into Superior Vena Cava, Percutaneous Approach (ICD-10-PCS; principal; 2023-09-03)
PROC: B548ZZA Ultrasonography of Superior Vena Cava, Guidance (ICD-10-PCS; 2023-09-03)
PROC: 3E0436Z Introduction of Nutritional Substance into Central Vein, Percutaneous Approach (ICD-10-PCS; 2023-09-03)
DX: K57.20 Diverticulitis of large intestine with perforation and abscess without bleeding (principal); N13.6 Pyonephrosis; F03.90 Unspecified dementia, unspecified severity, without behavioral disturbance, psychotic disturbance, mood disturbance, and anxiety; K76.0 Fatty (change of) liver, not elsewhere classified; D72.829 Elevated white blood cell count, unspecified; E78.5 Hyperlipidemia, unspecified; I10 Essential (primary) hypertension; D75.839 Thrombocytosis, unspecified; N83.8 Other noninflammatory disorders of ovary, fallopian tube and broad ligament; J44.9 Chronic obstructive pulmonary disease, unspecified; K59.00 Constipation, unspecified; E87.6 Hypokalemia; R74.01 Elevation of levels of liver transaminase levels; Z86.73 Personal history of transient ischemic attack (TIA), and cerebral infarction without residual deficits; Z85.048 Personal history of other malignant neoplasm of rectum, rectosigmoid junction, and anus; Z92.3 Personal history of irradiation; Z87.891 Personal history of nicotine dependence; Z92.21 Personal history of antineoplastic chemotherapy
CPT/HCPCS: 36415; 36569; 71045; 73723; 74176; 74177; 76775; 76856; 80053; 80307; 81001; 82306; 82607; 82962; 83036; 83605; 83690; 83735; 84100; 84478; 85025; 85610; 85730; 86304; 86850; 86900; 86901; 87086; 96365; 96368; 96375; C9113; G0378; J1815; J1885; J2001; J2405; J2543; J3480; J3490; J7131

== ENCOUNTER 2023-09-19 10:28 | Inpatient (IN) | payer MEDICAID ==
[~2023-09-19] VITALS: Ht 170.2 cm; Wt 72.0 kg
[~2023-09-19 10:28] MED LIST changes: +ALPR0.255 PO; +ASPI-325 PO; +ATEN-60 PO; +ATOR20TA50 PO; +CIPR-173 PO; +ESCI1TAB36 PO; +LOSA100T25 PO; +MEMA1TAB3 PO; +METR-344 PO
[2023-09-19 10:50] VITALS: BP 104/51; PULSE 75; RESP 16; TEMP 97.4; O2SAT 96
[2023-09-19] MEDS: PANTOPRAZOLE 40 MG/10 ML VIAL INJ IV ONE (11:15)
[2023-09-19] MEDS ORDERED: ACETAMINOPHEN 325 MG TAB PO PRN (11:15)
[2023-09-19] MEDS ORDERED: ONDANSETRON HCL 4 MG/2 ML VIAL IV PRN (11:15)
[2023-09-19 12:17] LABS: Basophils # (auto) 0.2 10 ^3/uL (0-0.2); Basophils % (auto) 1.2 % (0.0-2.0); Eosinophils # (auto) 0.2 10 ^3/uL (0-0.8); Eosinophils % (auto) 1.7 % (0.0-7.0); Hematocrit 41.2 % (36.0-46.0); Hemoglobin 13.7 g/dL (12.2-16.2); Lymphocytes % (auto) 15.2 % (10.0-50.0); Mean Corpuscular Hemoglobin 28.6 pg (28.0-32.0); Mean Corpuscular Hgb Conc. 33.2 g/dL (32.0-36.0); Monocytes # (auto) 1.1 10 ^3/uL (0-1.3); Monocytes % (auto) 8.1 % (0.0-12.0); Neutrophils # (auto) 9.5 10 ^3/uL (1.6-8.6); Neutrophils % (auto) 73.8 % (37.0-80.0); Red Blood Cells 4.79 10^6/uL (4.0-5.20); Red Cell Distribution Width 15.3 % (11.8-14.3); White Blood Cell 12.9 10^3/uL (4.4-10.8)
[2023-09-19 12:27] LABS: Chloride 102 mmol/L (98-107); Potassium 3.4 mmol/L (3.5-5.1); Sodium 135 mmol/L (136-145)
[2023-09-19 12:28] LABS: Anion Gap 9 (5-15); Calcium 9.4 mg/dL (8.5-10.1); Carbon Dioxide 24 mmol/L (20-30); INR 1.04 (0.9-1.15); Prothrombin Time 10.9 sec (9.3-11.8)
[2023-09-19 12:34] LABS: BUN/Creatinine Ratio 6.2 (10.0-20.0); Blood Urea Nitrogen 6 mg/dL (9-23); Glucose 147 mg/dL (74-106)
[2023-09-19] MEDS: POTASSIUM EFFERVESENT TAB 25 MEQ PO ONE (13:00)
[2023-09-19] MEDS: SODIUM CHLORIDE 0.9% 1,000 ML IV ONE (13:00)
[2023-09-19] MEDS ORDERED: hydrALAZINE HCL 20 MG/ML VL IV PRN (13:15)
[2023-09-19] MEDS: MORPHINE SULFATE INJ 2 MG/ml SYRG IV PRN (14:58)
[2023-09-19] MEDS: HYDROmorphone HCL 2 MG/ML VL/or syr IV PRN (16:15)
[2023-09-19] MEDS: SODIUM CHLORIDE 0.9% 1,000 ML IV SCH (16:18)
[2023-09-19] MEDS: PIPERACILLIN-TAZOB 3.375GM 100 ML IV ONE (16:18)
[2023-09-19 17:00] VITALS: BP 134/59; PULSE 87; RESP 18; TEMP 98.1; O2SAT 96
[2023-09-19] MEDS: PIPERACILLIN-TAZOB 3.375GM 100 ML IV SCH (20:54)
[2023-09-19] MEDS: MEMANTINE HCL 5 MG TAB PO SCH (20:59)
[2023-09-19 21:00] VITALS: BP 156/91; PULSE 102; RESP 20; TEMP 100.2; O2SAT 98
[2023-09-19] MEDS: ATORVASTATIN 20 MG TAB PO SCH (21:00)
[2023-09-20] MEDS: PIPERACILLIN-TAZOB 3.375GM 100 ML IV SCH (00:01)
[2023-09-20 00:42] VITALS: BP 124/79; PULSE 87; RESP 22; TEMP 99.1; O2SAT 93
[2023-09-20 06:21] LABS: Basophils # (auto) 0.1 10 ^3/uL (0-0.2); Basophils % (auto) 0.7 % (0.0-2.0); Eosinophils # (auto) 0.1 10 ^3/uL (0-0.8); Hematocrit 39.9 % (36.0-46.0); Hemoglobin 13.4 g/dL (12.2-16.2); Mean Corpuscular Hemoglobin 28.5 pg (28.0-32.0); Mean Corpuscular Hgb Conc. 33.6 g/dL (32.0-36.0); Mean Corpuscular Volume 84.9 fL (80.0-100.0); Monocytes # (auto) 1.2 10 ^3/uL (0-1.3); Monocytes % (auto) 9.5 % (0.0-12.0); Neutrophils # (auto) 9.3 10 ^3/uL (1.6-8.6); Neutrophils % (auto) 72.8 % (37.0-80.0); Red Cell Distribution Width 15.2 % (11.8-14.3); White Blood Cell 12.7 10^3/uL (4.4-10.8)
[2023-09-20] MEDS: PATIENTS OWN MEDICATION (Losartan Potassium & Hydrochlo (Hyzaar) 1 TAB) PO SCH (06:46)
[2023-09-20 06:48] LABS: Alanine Aminotransferase 87 U/L (7-40); Albumin 3.8 g/dL (3.2-4.8); Alkaline Phosphatase 480 U/L (46-116); Anion Gap 2 (5-15); Aspartate Aminotransferase 93 U/L (13-40); Calcium 9.4 mg/dL (8.7-10.4); Carbon Dioxide 28 mmol/L (20-30); Chloride 105 mmol/L (98-107); Glucose 129 mg/dL (74-106); Potassium 3.4 mmol/L (3.5-5.1); Sodium 135 mmol/L (136-145)
[2023-09-20 06:49] LABS: Bilirubin, Total 0.7 mg/dL (0.2-1.0); Total Protein 6.7 g/dL (5.7-8.2)
[2023-09-20 06:56] LABS: BUN/Creatinine Ratio 7.6 (10.0-20.0); Blood Urea Nitrogen < 5 mg/dL (9-23)
[2023-09-20 09:00] VITALS: BP 124/51; PULSE 86; RESP 20; TEMP 97.7; O2SAT 97
[2023-09-20] MEDS: ALPRAZolam 0.25 MG TAB PO SCH (09:50)
[2023-09-20] MEDS: ESCITALOPRAM OXALATE PO SCH (09:53)
[2023-09-20] MEDS: PANTOPRAZOLE 40 MG/10 ML VIAL INJ IV SCH (09:53)
[2023-09-20] MEDS: ATENOLOL 25 MG TAB PO SCH (09:53)
[2023-09-20 13:00] VITALS: BP 133/66; PULSE 81; RESP 20; TEMP 98.2; O2SAT 97
[2023-09-20 17:00] VITALS: BP 129/69; PULSE 84; RESP 18; TEMP 98.1; O2SAT 98
[2023-09-20] MEDS: POTASSIUM CHL 20 Meq TABLET PO ONE (20:02)
[2023-09-20 21:00] VITALS: BP_SYST 106; BP_SYST 155; BP_DIAS 32; BP_DIAS 68; PULSE 78; PULSE 79; RESP 20; TEMP 97.5; TEMP 98.3; O2SAT 90; O2SAT 92
[2023-09-21 05:38] LABS: Basophils # (auto) 0.1 10 ^3/uL (0-0.2); Basophils % (auto) 0.9 % (0.0-2.0); Eosinophils # (auto) 0.3 10 ^3/uL (0-0.8); Eosinophils % (auto) 3.1 % (0.0-7.0); Hematocrit 37.5 % (36.0-46.0); Hemoglobin 12.7 g/dL (12.2-16.2); Lymphocytes # (auto) 2.6 10 ^3/uL (0.4-5.4); Lymphocytes % (auto) 26.5 % (10.0-50.0); Mean Corpuscular Hemoglobin 29.2 pg (28.0-32.0); Mean Corpuscular Hgb Conc. 33.8 g/dL (32.0-36.0); Mean Corpuscular Volume 86.2 fL (80.0-100.0); Monocytes # (auto) 1.1 10 ^3/uL (0-1.3); Monocytes % (auto) 11.5 % (0.0-12.0); Neutrophils # (auto) 5.7 10 ^3/uL (1.6-8.6); Red Blood Cells 4.35 10^6/uL (4.0-5.20); Red Cell Distribution Width 15.1 % (11.8-14.3); White Blood Cell 9.8 10^3/uL (4.4-10.8)
[2023-09-21 05:43] LABS: Chloride 107 mmol/L (98-107); Potassium 3.9 mmol/L (3.5-5.1); Sodium 136 mmol/L (136-145)
[2023-09-21 05:44] LABS: Anion Gap 1 (5-15); Calcium 9.6 mg/dL (8.7-10.4); Carbon Dioxide 28 mmol/L (20-30)
[2023-09-21 05:49] LABS: Glucose 119 mg/dL (74-106)
[2023-09-21 05:50] LABS: Magnesium 1.9 mg/dL (1.6-2.6)
[2023-09-21 06:06] LABS: BUN/Creatinine Ratio 7.2 (10.0-20.0); Blood Urea Nitrogen < 5 mg/dL (9-23)
[2023-09-21 09:00] VITALS: BP 127/73; PULSE 85; RESP 2; TEMP 98.7; O2SAT 95
[2023-09-21] MEDS ORDERED: OXYCODONE W/ ACETAMINOPHEN 5/325MG TABLET PO PRN (11:00)
[2023-09-21] MEDS: OXYCODONE W/ ACETAMINOPHEN 5/325MG TABLET PO PRN (11:16)
[2023-09-21 13:00] VITALS: BP_SYST 132; BP_SYST 148; BP_DIAS 39; BP_DIAS 79; PULSE 67; PULSE 77; RESP 20; TEMP 98.4; TEMP 98.6; O2SAT 93; O2SAT 97
[2023-09-21 17:00] VITALS: BP 103/67; PULSE 63; RESP 20; TEMP 98.7; O2SAT 91
[2023-09-21 20:00] VITALS: RESP 16
[2023-09-21 21:00] VITALS: BP 99/62; PULSE 61; RESP 20; TEMP 97.5; O2SAT 95
[2023-09-22] VITALS (8 sets, daily range): BP systolic 110–136; BP diastolic 6–80; PULSE 68–104; RESP 16–20; TEMP 97.6–98.3; O2SAT 92–97
[2023-09-22] MEDS ORDERED: MELATONIN 5 MG TAB PO ONE (00:15)
[2023-09-22] MEDS: ERTAPENEM SOD INJ 1 GM in SODIUM CHL 0.9% 50 ML IV ONE (15:23)
[2023-09-23] MEDS: ATORVASTATIN 20 MG TAB ONE (00:23)
[2023-09-23 01:00] VITALS: BP 143/73; PULSE 72; RESP 18; TEMP 98.4; O2SAT 92
[2023-09-23 05:00] VITALS: BP 152/68; PULSE 72; RESP 18; TEMP 98; O2SAT 94
[2023-09-23 08:37] VITALS: BP 164/94; PULSE 88; RESP 18; TEMP 97.6; O2SAT 98
[2023-09-23 09:09] VITALS: BP 150/84; PULSE 81
[2023-09-23] MEDS: ERTAPENEM SOD INJ 1 GM in SODIUM CHL 0.9% 50 ML IV SCH (10:47)
[2023-09-23 12:29] VITALS: BP 108/66; PULSE 70; RESP 19; TEMP 98.7; O2SAT 98
[2023-09-23 16:44] VITALS: BP 142/83; PULSE 84; RESP 19; TEMP 98; O2SAT 97
== END 2023-09-23 17:38 | disposition home health service (06) | DRG 244 ==
LOC: UNDOADMIN 10:33 → CENTRAL 10:33
PROVIDERS: ADMIT Nurse Practitioner Family; ATTEND Internal Medicine Geriatric Medicine
PROC: 05HC33Z Insertion of Infusion Device into Left Basilic Vein, Percutaneous Approach (ICD-10-PCS; principal; 2023-09-22)
PROC: B54NZZA Ultrasonography of Left Upper Extremity Veins, Guidance (ICD-10-PCS; 2023-09-22)
DX: K57.20 Diverticulitis of large intestine with perforation and abscess without bleeding (principal); F03.90 Unspecified dementia, unspecified severity, without behavioral disturbance, psychotic disturbance, mood disturbance, and anxiety; D72.829 Elevated white blood cell count, unspecified; E87.6 Hypokalemia; E78.5 Hyperlipidemia, unspecified; I10 Essential (primary) hypertension; R79.89 Other specified abnormal findings of blood chemistry; Z87.891 Personal history of nicotine dependence; Z86.73 Personal history of transient ischemic attack (TIA), and cerebral infarction without residual deficits; Z85.048 Personal history of other malignant neoplasm of rectum, rectosigmoid junction, and anus; Z80.8 Family history of malignant neoplasm of other organs or systems
CPT/HCPCS: 36415; 74176; 80048; 80053; 83735; 85025; 85610; 86850; 86900; 86901; 87040; 87081; 93005; C9113; G0378; J1335; J2543

== ENCOUNTER 2023-10-14 13:52 | Emergency (ER) | payer MEDICAID, SELFPAY ==
[~2023-10-14] VITALS: Ht 170.2 cm; Wt 81.0 kg
[~2023-10-14 13:52] MED LIST changes: -CIPR-173 PO; -METR-344 PO
[2023-10-14 16:53] VITALS: BP 142/81; PULSE 82; RESP 18; O2SAT 95
== END 2023-10-14 16:55 | disposition home or self-care (01) ==
LOC: ER 13:52
DX: Z46.82 Encounter for fitting and adjustment of non-vascular catheter (principal); J44.9 Chronic obstructive pulmonary disease, unspecified; E78.5 Hyperlipidemia, unspecified; I10 Essential (primary) hypertension; F12.10 Cannabis abuse, uncomplicated; Z98.51 Tubal ligation status; Z90.89 Acquired absence of other organs; Z90.49 Acquired absence of other specified parts of digestive tract; Z85.9 Personal history of malignant neoplasm, unspecified

== ENCOUNTER 2023-11-22 11:49 | Emergency (ER) | payer SELFPAY ==
[~2023-11-22] VITALS: Ht 167.6 cm; Wt 80.5 kg
[2023-11-22] MEDS: ONDANSETRON ODT 4 MG TAB PO ONE (12:38)
[2023-11-22] MEDS: KETOROLAC TROMETH 30 MG/ML 1ML VIAL IV ONE (12:39)
[2023-11-22 12:57] LABS: Basophils # (auto) 0.1 10 ^3/uL (0-0.2); Eosinophils # (auto) 0.3 10 ^3/uL (0-0.8); Eosinophils % (auto) 2.4 % (0.0-7.0); Hematocrit 43.8 % (36.0-46.0); Lymphocytes # (auto) 3.9 10 ^3/uL (0.4-5.4); Lymphocytes % (auto) 31.8 % (10.0-50.0); Mean Corpuscular Hgb Conc. 34.3 g/dL (32.0-36.0); Mean Corpuscular Volume 87.4 fL (80.0-100.0); Monocytes # (auto) 0.8 10 ^3/uL (0-1.3); Monocytes % (auto) 6.5 % (0.0-12.0); Neutrophils # (auto) 7.1 10 ^3/uL (1.6-8.6); Neutrophils % (auto) 58.3 % (37.0-80.0); Nucleated Red Blood Cells % 0.1 %; Red Blood Cells 5.01 10^6/uL (4.0-5.20); Red Cell Distribution Width 15.3 % (11.8-14.3); White Blood Cell 12.3 10^3/uL (4.4-10.8)
[2023-11-22] MEDS: MAALOX PLUS or MAALOX 30 ML PO ONE (13:01)
[2023-11-22 13:13] LABS: INR 0.94 (0.9-1.15)
[2023-11-22 13:16] LABS: Alanine Aminotransferase 24 U/L (7-40); Albumin 4.3 g/dL (3.2-4.8); Alkaline Phosphatase 154 U/L (46-116); Anion Gap 3 (5-15); Aspartate Aminotransferase 14 U/L (13-40); BUN/Creatinine Ratio 13.5 (10.0-20.0); Bilirubin, Total 0.4 mg/dL (0.2-1.0); Blood Urea Nitrogen 10 mg/dL (9-23); Calcium 10.7 mg/dL (8.7-10.4); Carbon Dioxide 25 mmol/L (20-30); Chloride 109 mmol/L (98-107); Glucose 101 mg/dL (74-106); Sodium 137 mmol/L (136-145); Total Protein 7.5 g/dL (5.7-8.2)
[2023-11-22 13:38] LABS: Urine Bacteria FEW /hpf (None Seen); Urine Blood Negative /uL (Negative); Urine Clarity Turbid (Clear); Urine Color Yellow (Yellow); Urine Protein, UAD Negative (Negative); Urine Specific Gravity 1.013 (1.001-1.035); Urine Urobilinogen Normal (Negative); Urine WBC 14 /hpf (0 - 5); Urine pH 6.5 (5.0-9.0)
[2023-11-22] MEDS ORDERED: METR-344 PO (14:22)
[2023-11-22] MEDS ORDERED: LEVO500T91 PO (14:22)
[2023-11-22] MEDS ORDERED: HYDR-4902 PO ×2 (14:23→18:05)
[2023-11-22 15:53] VITALS: BP 123/82; PULSE 100; RESP 18; TEMP 98.2; O2SAT 96
== END 2023-11-22 15:55 | disposition home or self-care (01) ==
LOC: ER 11:49
DX: N39.0 Urinary tract infection, site not specified (principal); K57.90 Diverticulosis of intestine, part unspecified, without perforation or abscess without bleeding; K52.9 Noninfective gastroenteritis and colitis, unspecified; J44.9 Chronic obstructive pulmonary disease, unspecified; E78.5 Hyperlipidemia, unspecified; I10 Essential (primary) hypertension; Z90.49 Acquired absence of other specified parts of digestive tract; Z90.89 Acquired absence of other organs; Z79.82 Long term (current) use of aspirin; Z79.891 Long term (current) use of opiate analgesic; Z79.4 Long term (current) use of insulin; Z79.899 Other long term (current) drug therapy
CPT/HCPCS: 36415; 71045; 74176; 80053; 81001; 83880; 84484; 85025; 85610; 85730; 93005; 96374; 99285; J1885; Q0162

== ENCOUNTER 2024-02-04 08:18 | Emergency (ER) | payer SELFPAY ==
[~2024-02-04] VITALS: Ht 170.2 cm; Wt 82.3 kg
[~2024-02-04 08:18] MED LIST changes: +HYDR-4902 PO; +LEVO500T91 PO; +METR-344 PO
[2024-02-04 08:30] VITALS: BP 171/93; RESP 16; O2SAT 98
[2024-02-04 08:35] VITALS: PULSE 70
[2024-02-04 10:29] LABS: Urine Bacteria None Seen /hpf (None Seen)
[2024-02-04 11:26] LABS: Basophils # (auto) 0.1 10 ^3/uL (0-0.2); Basophils % (auto) 1.2 % (0.0-2.0); Eosinophils # (auto) 0.3 10 ^3/uL (0-0.8); Eosinophils % (auto) 2.5 % (0.0-7.0); Hematocrit 42.4 % (36.0-46.0); Hemoglobin 14.7 g/dL (12.2-16.2); Lymphocytes # (auto) 3.5 10 ^3/uL (0.4-5.4); Lymphocytes % (auto) 33.7 % (10.0-50.0); Mean Corpuscular Hemoglobin 30.4 pg (28.0-32.0); Mean Corpuscular Hgb Conc. 34.7 g/dL (32.0-36.0); Mean Corpuscular Volume 87.8 fL (80.0-100.0); Monocytes # (auto) 0.8 10 ^3/uL (0-1.3); Monocytes % (auto) 7.8 % (0.0-12.0); Neutrophils # (auto) 5.7 10 ^3/uL (1.6-8.6); Neutrophils % (auto) 54.8 % (37.0-80.0); Platelet Count (auto) 293 10^3/uL (140-450); Red Blood Cells 4.83 10^6/uL (4.0-5.20); Red Cell Distribution Width 13.4 % (11.8-14.3); White Blood Cell 10.4 10^3/uL (4.4-10.8)
[2024-02-04 11:37] LABS: Alanine Aminotransferase 21 U/L (7-40); Albumin 4.6 g/dL (3.2-4.8); Alkaline Phosphatase 155 U/L (46-116); Anion Gap 3 (5-15); Aspartate Aminotransferase 12 U/L (13-40); BUN/Creatinine Ratio 15.4 (10.0-20.0); Blood Urea Nitrogen 12 mg/dL (9-23); Calcium 10.2 mg/dL (8.7-10.4); Carbon Dioxide 25 mmol/L (20-30); Chloride 108 mmol/L (98-107); Glucose 105 mg/dL (74-106); Magnesium 2.1 mg/dL (1.6-2.6); Potassium 3.9 mmol/L (3.5-5.1); Sodium 136 mmol/L (136-145)
[2024-02-04 11:38] LABS: Bilirubin, Total 0.4 mg/dL (0.2-1.0); Total Protein 7.6 g/dL (5.7-8.2)
[2024-02-04 11:40] LABS: Urine Blood Negative /uL (Negative); Urine Clarity Clear (Clear); Urine Color Light-Yellow (Yellow); Urine Protein, UAD Negative (Negative); Urine Specific Gravity 1.008 (1.001-1.035); Urine Urobilinogen Normal (Negative); Urine WBC 1 /hpf (0 - 5)
[2024-02-04] MEDS ORDERED: METH-1181 PO (13:19)
[2024-02-04] MEDS ORDERED: MAGN100T6 OR (13:19)
[2024-02-04] MEDS ORDERED: HYDR50TA32 PO (13:19)
== END 2024-02-04 15:52 | disposition left against medical advice (07) ==
LOC: ER 08:18
DX: K57.90 Diverticulosis of intestine, part unspecified, without perforation or abscess without bleeding (principal); K59.00 Constipation, unspecified; R25.2 Cramp and spasm; J44.9 Chronic obstructive pulmonary disease, unspecified; E78.5 Hyperlipidemia, unspecified; I10 Essential (primary) hypertension; Z90.49 Acquired absence of other specified parts of digestive tract; Z98.51 Tubal ligation status
CPT/HCPCS: 36415; 70450; 71045; 74176; 80053; 81001; 83735; 83880; 84484; 85025; 93005

== ENCOUNTER 2024-02-07 10:14 | Emergency (ER) | payer SELFPAY ==
[~2024-02-07] VITALS: Ht 170.2 cm; Wt 83.0 kg
[~2024-02-07 10:14] MED LIST changes: +HYDR50TA32 PO; +MAGN100T6 OR; +METH-1181 PO
[2024-02-07] MEDS ORDERED: LIDO5CRE14 EX (11:24)
[2024-02-07] MEDS ORDERED: HYDR25SU21 PR (11:24)
[2024-02-07 11:30] VITALS: BP 118/86; PULSE 78; RESP 18; TEMP 97.9; O2SAT 98
== END 2024-02-07 11:32 | disposition home or self-care (01) ==
LOC: ER 10:14
DX: K64.4 Residual hemorrhoidal skin tags (principal); Z79.899 Other long term (current) drug therapy; Z79.84 Long term (current) use of oral hypoglycemic drugs

== ENCOUNTER 2024-03-06 07:16 | Emergency (ER) | payer SELFPAY ==
[~2024-03-06] VITALS: Ht 170.2 cm; Wt 80.3 kg
[~2024-03-06 07:16] MED LIST changes: +HYDR25SU21 PR; +LIDO5CRE14 EX
[2024-03-06] MEDS: ONDANSETRON ODT 4 MG TAB PO ONE (08:07)
[2024-03-06] MEDS: MEPERIDINE HCL (50 MG/ML) 1 ML VIAL IM ONE (08:10)
[2024-03-06 08:16] VITALS: PULSE 70; RESP 16; O2SAT 95
[2024-03-06] MEDS ORDERED: HYDR-4902 PO (08:38)
[2024-03-06] MEDS ORDERED: PRED20TA2 PO (08:38)
[2024-03-06 08:54] VITALS: BP 137/63; PULSE 69; RESP 19; TEMP 97.7; O2SAT 95
== END 2024-03-06 08:57 | disposition home or self-care (01) ==
LOC: ER 07:16
DX: G89.29 Other chronic pain (principal); M54.50 Low back pain, unspecified; I10 Essential (primary) hypertension; J44.9 Chronic obstructive pulmonary disease, unspecified; E78.5 Hyperlipidemia, unspecified; Z85.9 Personal history of malignant neoplasm, unspecified; Z98.890 Other specified postprocedural states; Z90.49 Acquired absence of other specified parts of digestive tract; Z79.899 Other long term (current) drug therapy; Z79.82 Long term (current) use of aspirin
CPT/HCPCS: 96372; 99283; J2175; Q0162

== ENCOUNTER → 2024-04-08 | Day surgery (SDC) | payer SELFPAY ==
[2024-04-06 15:25] LABS: Urine Bacteria None Seen /hpf (None Seen)
[2024-04-06 15:30] LABS: Basophils # (auto) 0.1 10 ^3/uL (0-0.2); Basophils % (auto) 1.1 % (0.0-2.0); Eosinophils # (auto) 0.2 10 ^3/uL (0-0.8); Eosinophils % (auto) 1.9 % (0.0-7.0); Hematocrit 45.7 % (36.0-46.0); Hemoglobin 14.8 g/dL (12.2-16.2); Lymphocytes # (auto) 3.3 10 ^3/uL (0.4-5.4); Lymphocytes % (auto) 36.4 % (10.0-50.0); Mean Corpuscular Hemoglobin 28.9 pg (28.0-32.0); Mean Corpuscular Hgb Conc. 32.4 g/dL (32.0-36.0); Monocytes # (auto) 0.7 10 ^3/uL (0-1.3); Monocytes % (auto) 7.2 % (0.0-12.0); Neutrophils # (auto) 4.9 10 ^3/uL (1.6-8.6); Neutrophils % (auto) 53.4 % (37.0-80.0); Nucleated Red Blood Cells % 0.1 %; Platelet Count (auto) 284 10^3/uL (140-450); Red Blood Cells 5.14 10^6/uL (4.0-5.20); Red Cell Distribution Width 15.2 % (11.8-14.3); White Blood Cell 9.1 10^3/uL (4.4-10.8)
[2024-04-06 15:53] LABS: Urine Blood Negative /uL (Negative); Urine Clarity Clear (Clear); Urine Color Colorless (Yellow); Urine Protein, UAD Negative (Negative); Urine Specific Gravity 1.002 (1.001-1.035); Urine Urobilinogen Normal (Negative); Urine WBC 3 /hpf (0 - 5); Urine pH 6.5 (5.0-9.0)
[2024-04-06 16:01] LABS: Alanine Aminotransferase 19 U/L (7-40); Albumin 4.4 g/dL (3.2-4.8); Alkaline Phosphatase 137 U/L (46-116); Anion Gap 4 (5-15); Aspartate Aminotransferase 12 U/L (13-40); BUN/Creatinine Ratio 12.8 (10.0-20.0); Bilirubin, Total 0.3 mg/dL (0.2-1.0); Blood Urea Nitrogen 10 mg/dL (9-23); Calcium 10.3 mg/dL (8.7-10.4); Carbon Dioxide 26 mmol/L (20-31); Chloride 109 mmol/L (98-107); Glucose 81 mg/dL (74-106); INR 1.15 (0.9-1.15); Partial Thromboplastin Time 36.7 SEC (24.5-34.5); Potassium 3.9 mmol/L (3.5-5.1); Prothrombin Time 12.1 sec (9.3-11.8); Sodium 139 mmol/L (136-145); Total Protein 7.4 g/dL (5.7-8.2)
[~2024-04-08] VITALS: Ht 170.2 cm; Wt 83.9 kg
[~2024-04-08] MED LIST changes: +PRED20TA2 PO
[2024-04-08 14:02] VITALS: RESP 18; TEMP 97.8; O2SAT 99
--- NOTE | 2024-04-08 14:02 | DVHHP2 ---
GI H&P Pre-Op Assessment Date: 04/08/24 Chief complaint: History of anal cancer, change in bowel movement. HPI: per clinic note Past medical history: per clinic note Past surgical history: per clinic note Family history: per clinic note Physical exam: General: NAD, AAOX3 HEENT: PERRL, no scleral icterus, normal hearing, gums without lesions or bleeding, oropharynx clear without erythema or exudate. Neck: Supple without enlargement of the thyroid, or lymphadenopathy. Chest: Normal size and shape, no tenderness, lung hannah clear to auscultation and percussion, nonlabored breathing. Heart: RRR, no murmur Abdomen: non-distended, no tenderness to palpation, +BS, no hepatosplenomegaly Extremities: no edema Neurological: CN II-XII intact, sensation intact in all extremities, 5+ strength in all extremities Skin: No rashes, No jaundice Assessment: - History of anal cancer, change in bowel movement. Plan: - Colonoscopy - Risks (bleeding, infection, perforation, reaction to sedation medications and cardiopulmonary arrest) and benefit of the procedure were explained to patient. Patient agrees to undergo the procedure. PAULETTE SCHULZ MD Apr 08, 2024 14:02
--- NOTE | 2024-04-08 14:04 | DVHOP2 ---
Operative Report DATE OF OPERATION: 04/08/24 PROCEDURE: Colonoscopy. PREOPERATIVE INDICATION: The patient is a 64 -year-old female with history of anal cancer undergoing colonoscopy for change in bowel movement. POSTOPERATIVE DIAGNOSES: 1. The colonoscope only reach the sigmoid colon (35 cm from the anal verge) because of possible stricture. She might have stricture due to previous diverticulitis. 2. Diverticulosis in the sigmoid colon 3. Internal hemorrhoids PROCEDURE PERFORMED BY: Irvin Guadalupe M.D. SCOPE: Olympus videocolonoscope. ASA CLASS: 4 PREOPERATIVE MEDICATIONS: MAC with Dr Vance PROCEDURE IN DETAIL: After obtaining an informed consent, the patient was placed on left lateral decubitus position. She was then sedated with the above medications. A rectal examination was performed that was normal. The colonoscope was then passed through the anus into the rectosigmoid and to the sigmoid colon (35 cm from the anal verge). The colonoscope could not advanced further due to possible stricture. The stricture might be due to previous diverticulitis. There was diverticulosis in the sigmoid colon. There were internal hemorrhoids. The colonoscope was then withdrawn. The patient tolerated the procedure well without difficulty. WITHDRAWAL TIME: N/A QUALITY OF THE PREP: [place] Bowel Prep score: 1 COMPLICATIONS : None SPECIMENS: None DISPOSITION: D/C to home PLAN: 1. Will get a barium enema to evaluate for stricture. IRVIN GUADALUPE MD Apr 08, 2024 14:04
--- NOTE | 2024-04-08 14:04 | DVHDS2 ---
Physician Discharge Progress N Final Diagnosis: Diverticulosis, internal hemorrhoid, possible colonic stricture Operations or Procedures: Operations or Procedures Incomplete colonoscopy Condition on Discharge: Good Disposition: Home Discharge Instructions: Diet: Regular Activity: No Restrictions, As Tolerated Medications: Resume previous home medications Follow Up Care: Discharge Statement: "Patient was advised to return to the ER or call 911 if any headaches, dizziness, shortness of breath, chest pain, abdominal pain, bleeding, fevers, or worsening of medical condition. Patient was counseled about treatment plan, medications, possible side effects, patientverbalized understanding. All questions were answered to the best of my ability. This discharge took greater then 30 minutes in planning, reviewing documentation, counseling the patient, and discussing with other team members." PAULETTE SCHULZ MD Apr 08, 2024 14:04
[2024-04-08 14:20] VITALS: BP 128/68; PULSE 82; RESP 18; O2SAT 97
== END | disposition home or self-care (01) ==
LOC: GI 09:29
PROVIDERS: ATTEND Internal Medicine Gastroenterology
DX: R19.4 Change in bowel habit (principal); R93.3 Abnormal findings on diagnostic imaging of other parts of digestive tract; K57.30 Diverticulosis of large intestine without perforation or abscess without bleeding; K64.8 Other hemorrhoids; K63.89 Other specified diseases of intestine; I10 Essential (primary) hypertension; J44.9 Chronic obstructive pulmonary disease, unspecified; E78.5 Hyperlipidemia, unspecified; F17.210 Nicotine dependence, cigarettes, uncomplicated; Z90.49 Acquired absence of other specified parts of digestive tract; Z85.048 Personal history of other malignant neoplasm of rectum, rectosigmoid junction, and anus; Z86.73 Personal history of transient ischemic attack (TIA), and cerebral infarction without residual deficits; Z79.82 Long term (current) use of aspirin; Z79.899 Other long term (current) drug therapy
CPT/HCPCS: 36415; 45378; 80053; 81001; 85025; 85610; 85730; J7030

== ENCOUNTER 2024-05-30 12:16 | Emergency (ER) | payer SELFPAY ==
[~2024-05-30] VITALS: Ht 170.2 cm; Wt 80.0 kg
--- NOTE | 2024-05-30 12:53 | ED.PDOC ---
Back pain HPI HPI Comments 64Y F with PMHx HTN, CVA, dementia, and skin CA presents to ED for chief complaint back pain [id number]. Pt describes pain as stabbing and states it radiates down LLE. Pt says she fell towards her winsome tree while putting it up. No LOC. Pt denies hitting her head. Pt denies chest pain, SOB, urinary incontinence, and fecal incontinence. Pt missed her pain management appt on 05/17/2024. Pt was given Tramadol by pain management but did not experience relief. BP upon ED arrival 205/104. Pt smokes cigarettes and marijuana. Pt denies alcohol use. No known allergies. Chief Complaint: Back Pain Time Seen by MD: 12:22 Primary Care Provider: KONSTANTIN Reviewed Notes: Nurses Notes, Medications, Allergies Allergies: Coded Allergies: NO KNOWN ALLERGIES (Unverified , 04/06/24) Home Meds Active Scripts Prednisone (Prednisone) 20 Mg Tab, 40 MG PO DAILY, #20 TAB Prov:CLIFF GRACE 03/06/24 Hydrocodone-Acetaminophen (Hydrocodone Bitartrate/AC 5-325 mg) 1 Tab Tab, 1 TAB PO TID, #10 TAB Prov:CLIFF GRACE 03/06/24 Lidocaine (Anorectal) (Lidocaine 5%) 5 % Cre, 5 % EX BID, #30 CRE Prov:CLIFF GRACE 02/07/24 Hydrocortisone Acetate (Anusol-Hc) 25 Mg Sup, 1 SUPP UT BID, #14 SUPP Prov:CLIFF GRACE 02/07/24 Hydroxyzine HCl (Hydroxyzine Hydrochloride) 50 Mg Tab, 50 MG PO QHSP PRN, #30 TAB prn insomnia Prov:KEVIN BERMUDEZ MD 02/04/24 Methocarbamol (Methocarbamol) 500 Mg Tab, 1000 MG PO Q8HP PRN, #30 TAB prn muscle cramps Prov:KEVIN BERMUDEZ MD 02/04/24 Magnesium Citrate (MAGNESIUM CITRATE) 100 Mg Tab, 300 MG OR DAILY PRN, #30 TAB prn constipation Prov:KEVIN BERMUDEZ MD 02/04/24 Hydrocodone-Acetaminophen (Hydrocodone Bitartrate/AC 5-325 mg) 1 Tab Tab, 1 TAB PO QIDPRN, #20 TAB Prov:CRISTINE SCHMITZ MD 11/22/23 Metronidazole (Flagyl) 500 Mg Tab, 1 TAB PO TID, #21 TAB Prov:CRISTINE SCHMITZ MD 11/22/23 Levofloxacin Hemihydrate (LEVAQUIN 500 MG) 500 Mg Tab, 500 MG PO DAILY for 7 Days, #7 TAB Prov:CRISTINE SCHMITZ MD 24 Hydrocodone-Acetaminophen (Hydrocodone Bitartrate/AC 5-325 mg) 1 Tab Tab, 1 TAB PO QIDP, #20 TAB Prov:CRISTINE SCHMITZ MD 11/22/23 Levofloxacin Hemihydrate (LEVAQUIN 500 MG) 500 Mg Tab, 500 MG PO DAILY for 7 Days, #7 TAB Prov:CRISTINE SCHMITZ MD 24 Metronidazole (Flagyl) 500 Mg Tab, 500 MG PO TID, #21 TAB Prov:CRISTINE SCHMITZ MD 11/22/23 Reported Medications Losartan Potassium & Hydrochlo (Hyzaar) 1 Tab Tab, 1 TAB PO QAM for blood pressure MDD 100-25 mg 09/02/23 Alprazolam (Alprazolam) 0.25 Mg Tab, 1 PO DAILY for ptsd MDD 0.25 09/02/23 Atorvastatin Calcium (ATORVASTATIN CALCIUM) 20 Mg Tab, 1 TAB PO HS for cholesterol MDD 20 09/02/23 Aspirin (Aspirin Low Dose) 81 Mg Tab, 1 TAB PO DAILY for hx stroke MDD 81 mg 09/02/23 Escitalopram Oxalate (ESCITALOPRAM OXALATE) 10 Mg Tab, 1 TAB PO DAILY MDD 10 mg 09/02/23 Memantine Hydrochloride (Memantine HCl) 5 Mg Tab, 1 TAB PO BID for Dementia MDD 10 mg 09/02/23 Atenolol (Atenolol) 25 Mg Tab, 1 TAB PO DAILY for blood pressure MDD 25 mg 09/02/23 Hydrochlorothiazide W/Triamter (Hctz/Triamterene) 1 Cap Cap 10/29/10 Information Source: Patient Mode of Arrival: Ambulatory Timing: Months Duration: Since onset Location of Back pain: (B) Lower back Radiates to: Posterior: Other (LLE) Severity: Mild Quality: Stabbing Onset: Fall Circumstance: Other History of: Chronic Back Pain Modifying Factors: Nothing Associated signs and symptoms: None Past Medical History PAST MEDICAL HISTORY: Cancer, COPD, CVA, High Lipids, HTN, Liver Surgical History: Cholecystectomy, , Tonsillectomy, Tubal Ligation TANK TESTER History: No Pertinent TANK TESTER History Family History Family History: Reviewed,noncontributory to illness, No family hx of DM, No family hx of HTN Social History Smoker: Cigarettes Alcohol: Denies ETOH Use Drugs: Marijuana Lives In: Home Constitutional: denies: chills, diaphoresis, fatigue, fever, malaise, sweats, weakness, others EENTM: denies: blurred vision, double vision, ear bleeding, ear discharge, ear drainage, ear pain, ear ringing, eye pain, eye redness, hearing loss, mouth pain, mouth swelling, nasal discharge, nose bleeding, nose congestion, nose pain, photophobia, tearing, throat pain, throat swelling, voice changes, others Respiratory: denies: cough, hemoptysis, orthopnea, SOB at rest, shortness of breath, SOB with excertion, stridor, wheezing, others Cardiovascular: denies: chest pain, dizzy spells, diaphoresis, Dyspnea on exertion, edema, irregular heart beat, left arm pain, lightheadedness, palpitations, PND, syncope, others Gastrointestinal: denies: abdomen distended, abdominal pain, blood streaked bowels, constipated, diarrhea, dysphagia, difficulty swallowing, hematemesis, melena, nausea, poor appetite, poor fluid intake, rectal bleeding, rectal pain, vomiting, others Genitourinary: denies: abnormal vagina bleeding, burning, dyspareunia, dysuria, flank pain, frequency, hematuria, incontinence, pain, , vagina discharge, urgency, others Neurological: denies: dizziness, fainting, headache, left sided numbness, left sided weakness, numbness, paresthesia, pre-existing deficit, right sided numbness, right sided weakness, seizure, speech problems, tingling, tremors, weakness, others Musculoskeletal: reports: back pain, others (LLE pain); denies: gout, joint pain, joint swelling, muscle pain, muscle stiffness, neck pain Integumetry: denies: bruises, change in color, change in hair/nails, dryness, laceration, lesions, lumps, rash, wounds, others Allergic/Immunocompromised: denies: Difficulty Healing, Frequent Infections, Hives, Itching, others Hematologic/Lymphatic: denies: anemia, blood clots, easy bleeding, easy bruising, swollen glands, others Endocrine: denies: excessive hunger, excessive sweating, excessive thirst, excessive urination, flushing, intolerance to cold, intolerance to heat, unexplained weight gain, unexplained weight loss, others Psychiatric: denies: anxiety, bipolar disorder, depression, hopeless, panic disorder, schizophrenia, sleepless, suicidal, others All Other Systems: Reviewed and Negative Physical Exam General Appearance: No Apparent Distress, Normal HEENT: Normal ENT Inspection, Pharynx Normal, TMs Normal Neck: Full Range of Motion, Non-Tender, Normal, Normal Inspection Respiratory: Chest Non-Tender, Lungs Clear, No Accessory Muscle Use, No Respiratory Distress, Normal Breath Sounds Cardiovascular: No Edema, No JVD, No Murmur, No Gallop, Normal Peripheral Pulses, Regular Rate/Rhythm Breast Exam: Deferred Gastrointestinal: No Organomegaly, Non Tender, No Pulsatile Mass, Normal Bowel Sounds, Soft Genitalia: Deferred Pelvic: Deferred Rectal: Deferred Extremities: No calf tenderness, Normal capillary refill, Normal inspection, Normal range of motion, Non-tender, No pedal edema Musculoskeletal : Apperance: Normal Neurologic: Alert, retoucher photoengraving II-XII nml as Tested, No Motor Deficits, Normal Affect, Normal Mood, No Sensory Deficits Cerebellar Function: NOT DONE Reflexes: NOT DONE Skin: Dry, Normal Color, Warm Lymphatic: No Adenopathy Was a procedure done? Was a procedure done?: No Back Pain Differential Dx Differential Diagnosis: Musculoskeletal Pain X-Ray, Labs, Meds, VS Vital Signs Date Time Temp Pulse Resp B/P (MAP) Pulse Ox O2 Delivery O2 Flow Rate FiO2 05/30/24 12:20 97.8 86 18 205/104 (137) 98 Lab Test 05/30/24 19:22 05/30/24 14:50 Range/Units Troponin I High Sensitivity 3 L < 3 L </=34 ng/L White Blood Count 10.2 4.4-10.8 10^3/uL Red Blood Count 5.59 H 4.0-5.20 10^6/uL Hemoglobin 16.4 H 12.2-16.2 g/dL Hematocrit 49.2 H 36.0-46.0 % Mean Corpuscular Volume 88.1 80.0-100.0 fL Mean Corpuscular Hemoglobin 29.4 28.0-32.0 pg Mean Corpuscular Hemoglobin Concent 33.4 32.0-36.0 g/dL Red Cell Distribution Width 16.8 H 11.8-14.3 % Platelet Count 273 140-450 10^3/uL Mean Platelet Volume 6.9 6.9-10.8 fL Neutrophils (%) (Auto) 63.3 37.0-80.0 % Lymphocytes (%) (Auto) 26.0 10.0-50.0 % Monocytes (%) (Auto) 7.7 0.0-12.0 % Eosinophils (%) (Auto) 1.9 0.0-7.0 % Basophils (%) (Auto) 1.1 0.0-2.0 % Neutrophils # (Auto) 6.5 1.6-8.6 10 ^3/uL Lymphocytes # (Auto) 2.7 0.4-5.4 10 ^3/uL Monocytes # (Auto) 0.8 0-1.3 10 ^3/uL Eosinophils # (Auto) 0.2 0-0.8 10 ^3/uL Basophils # (Auto) 0.1 0-0.2 10 ^3/uL Nucleated Red Blood Cells 0.1 % Sodium Level 139 136-145 mmol/L Potassium Level 4.1 3.5-5.1 mmol/L Chloride Level 109 H 98-107 mmol/L Carbon Dioxide Level 24 20-31 mmol/L Anion Gap 6 5-15 Blood Urea Nitrogen 16 9-23 mg/dL Creatinine 0.81 0.550-1.02 mg/dL Glomerular Filtration Rate Calc 81 >90 mL/min BUN/Creatinine Ratio 19.8 10.0-20.0 Serum Glucose 89 74-106 mg/dL Calcium Level 10.6 H 8.7-10.4 mg/dL Current Medications Medications (Trade) Dose Ordered Sig/Gena Route Start Time Stop Time Status Last Admin Cyclobenzaprine HCl (Flexeril Tablet) 5 mg ONCE ONCE PO 05/30/24 12:30 05/30/24 12:31 DC 05/30/24 14:20 Acetaminophen/ Hydrocodone Bitart ([place] 5/325MG Tab) 1 tab ONCE ONCE PO 05/30/24 12:30 05/30/24 12:31 DC 05/30/24 14:20 [facility] [id number] [id number] Ph: [phone] DIAGNOSTIC IMAGING Diagnostic Imaging Report : [id number] Signed PATIENT: ALANNAH HSUT: [id number] UNIT: [id number] : 1960 LOC: ER ROOM / BED: / AGE / SEX: 64 / F ADM STATUS: REG ER SERVICE 27 ORDERING PHYSICIAN: THAO LORENZO MD PROCEDURE(s): LUMB2 - LUMBAR SPINE 3 VIEW REASON: lumbar pain s/p fall ORDER NUMBER(s): [id number], ACCESSION NUMBER(s): [id number] CLINICAL INDICATION: lumbar pain s/p fall TECHNIQUE: 3 radiographic views of the lumbar spine were obtained. Comparison: CT abdomen and pelvis 02/04/2024 FINDINGS/IMPRESSION: 5 views of the lumbar spine available for evaluation. Minimal levoconvex curvature of the lumbar spine. No evidence of acute traumatic fractures or spondylolisthesis. The vertebral body heights are maintained. Multilevel [id number] degenerative changes of the lumbar spine. Skin red are noted over the right hemiabdomen with a surgical clip overlying the right iliac bone. Phleboliths are noted within the pelvis. Status post cholecystectomy. ATED BY: SHEYLA NIEVES DO DICTATED DATE/TIME: 05/30/24 1320 SIGNED BY: SHEYLA NIEVES DO SIGNED DATE/TIME: 05/30/24 1320 CC: Time of 1ST Reevaluation: 12:52 Reevaluation 1ST: Unchanged Patient Education/Counseling: Diagnosis, Treatment Family Education/Counseling: No Family Present Departure 1 Departure Time of Disposition: 20:06 (Patient presented with hypertension and symptoms concerning for hypertensive emergency. Patient is receiving iv blood pressure medications requiring intensive monitoring. Data: 1. I ordered and reviewed the result of at least 3 labs including a CBC, BMP, and Urinalysis. 2. I independently interpreted the following tests: CT Brain: Which appears benign. EKG which is Normal Sinus RhythmRisk:This patient has a high risk of morbidity due to further diagnostic testing or treatment and may suffer from an acute cardiac disorder. Workup reveals hypertensive emergency and patient should be admitted for further workup. and possible expert consultation. ) Impression: Primary Impression: Hypertensive urgency Additional Impression: Lumbar back pain Disposition: ADMITTED INPATIENT Admit to: Med Surg Condition: Serious Critical Care Note Critical Care Time?: No Stability Stability form required: No Heart Score Heart Score: Heart Score Response (Comments) Value History N/A 0 EKG N/A 0 Age N/A 0 Risk Factors N/A 0 Troponin N/A 0 Total 0 I personally scribed for THAO LORENZO MD ([facility] on 05/30/24 at 12:53. Electronically submitted by Preethi Mcgill ([place]). I personally scribed for THAO LORENZO MD ([facility]) on 05/30/24 at 14:22. Electronically submitted by Preethi Mcgill ([place]). THAO LORENZO MD May 30, 2024 12:53
--- NOTE | 2024-05-30 13:23 | DVH ---
CLINICAL INDICATION: lumbar pain s/p fall TECHNIQUE: 3 radiographic views of the lumbar spine were obtained. Comparison: CT abdomen and pelvis 02/04/2024 FINDINGS/IMPRESSION: 5 views of the lumbar spine available for evaluation. Minimal levoconvex curvature of the lumbar spin e. No evidence of acute traumatic fractures or spondylolisthesis. The vertebral body heights are main tained. Multilevel [id number] degenerative changes of the lumbar spine. Skin red are noted over the right hemiabdomen with a surgical clip overlying the right iliac bone . Phleboliths are noted within the pelvis. Status post cholecystectomy.
[2024-05-30] MEDS: HYDROcodone-ACET 5/325MG TAB PO ONE (14:20)
[2024-05-30] MEDS: CYCLOBENZAPRINE HCL 10 MG TAB PO ONE (14:20)
[2024-05-30 15:22] LABS: Basophils # (auto) 0.1 10 ^3/uL (0-0.2); Basophils % (auto) 1.1 % (0.0-2.0); Eosinophils # (auto) 0.2 10 ^3/uL (0-0.8); Eosinophils % (auto) 1.9 % (0.0-7.0); Hematocrit 49.2 % (36.0-46.0); Hemoglobin 16.4 g/dL (12.2-16.2); Lymphocytes # (auto) 2.7 10 ^3/uL (0.4-5.4); Mean Corpuscular Hemoglobin 29.4 pg (28.0-32.0); Mean Corpuscular Hgb Conc. 33.4 g/dL (32.0-36.0); Mean Corpuscular Volume 88.1 fL (80.0-100.0); Monocytes # (auto) 0.8 10 ^3/uL (0-1.3); Monocytes % (auto) 7.7 % (0.0-12.0); Neutrophils # (auto) 6.5 10 ^3/uL (1.6-8.6); Neutrophils % (auto) 63.3 % (37.0-80.0); Nucleated Red Blood Cells % 0.1 %; Platelet Count (auto) 273 10^3/uL (140-450); Red Blood Cells 5.59 10^6/uL (4.0-5.20); Red Cell Distribution Width 16.8 % (11.8-14.3); White Blood Cell 10.2 10^3/uL (4.4-10.8)
[2024-05-30 15:35] LABS: Potassium 4.1 mmol/L (3.5-5.1); Sodium 139 mmol/L (136-145)
[2024-05-30 15:36] LABS: Anion Gap 6 (5-15); Carbon Dioxide 24 mmol/L (20-31)
[2024-05-30 15:37] LABS: Chloride 109 mmol/L (98-107)
[2024-05-30 15:41] LABS: BUN/Creatinine Ratio 19.8 (10.0-20.0); Blood Urea Nitrogen 16 mg/dL (9-23); Glucose 89 mg/dL (74-106)
[2024-05-30 15:45] LABS: Calcium 10.6 mg/dL (8.7-10.4)
[2024-05-30] MEDS ORDERED: hydrALAZINE HCL 20 MG/ML VL IV ONE (20:15)
[2024-05-30 21:07] VITALS: BP 180/78; PULSE 72; RESP 18; TEMP 97.4; O2SAT 98
== END 2024-05-30 21:21 | disposition left against medical advice (07) ==
LOC: ER 12:16
DX: I16.0 Hypertensive urgency (principal); M54.50 Low back pain, unspecified; J44.9 Chronic obstructive pulmonary disease, unspecified; F17.210 Nicotine dependence, cigarettes, uncomplicated; F03.90 Unspecified dementia, unspecified severity, without behavioral disturbance, psychotic disturbance, mood disturbance, and anxiety; M47.816 Spondylosis without myelopathy or radiculopathy, lumbar region; Z79.52 Long term (current) use of systemic steroids; Z79.82 Long term (current) use of aspirin; Z79.899 Other long term (current) drug therapy; Z86.73 Personal history of transient ischemic attack (TIA), and cerebral infarction without residual deficits; Z90.49 Acquired absence of other specified parts of digestive tract; Z90.89 Acquired absence of other organs; Z98.51 Tubal ligation status
CPT/HCPCS: 36415; 72100; 80048; 84484; 85025

== ENCOUNTER 2024-11-08 08:22 | Inpatient (IN) | payer SELFPAY ==
[~2024-11-08] VITALS: Ht 170.2 cm; Wt 83.1 kg
--- NOTE | 2024-11-08 09:10 | ED.PDOC ---
History of Present Illness HPI Comments 64-year-old female presents to the ER with prior medical history of CVA x2, hypertension, liver, dementia, high lipids, COPD, cancer; surgical history of cholecystectomy, , tonsillectomy, tubal ligation in a chief complaint of headache and nausea. Patient reports that she has headache every morning with it subsiding throughout the day but on Friday of 11/06/2024 at 11:00 p.m. she had a 10/10 headache which felt like brain with swelling" for 13 hours. Patient notes that the pain began the following morning. The Headache worsens when the patient is laying down as well as waking the patient up. Patient notes that she did see a neurologist and was informed that she has lesions in the brain. Denies chills, fever, /V/D, SOB, CP. No other associated symptoms, modifiers, recent injuries or sick contacts present at this time. Chief Complaint: Headache Time Seen by MD: 08:50 Primary Care Provider: KONSTANTIN Reviewed Notes: Nurses Notes, Medications, Allergies Allergies: Coded Allergies: NO KNOWN ALLERGIES (Unverified , 04/06/24) Home Meds Active Scripts Prednisone (Prednisone) 20 Mg Tab, 40 MG PO DAILY, #20 TAB Prov:CLIFF GRACE 03/06/24 Hydrocodone-Acetaminophen (Hydrocodone Bitartrate/AC 5-325 mg) 1 Tab Tab, 1 TAB PO TID, #10 TAB Prov:CLIFF GRACE 03/06/24 Lidocaine (Anorectal) (Lidocaine 5%) 5 % Cre, 5 % EX BID, #30 CRE Prov:CLIFF GRACE 02/07/24 Hydrocortisone Acetate (Anusol-Hc) 25 Mg Sup, 1 SUPP NH BID, #14 SUPP Prov:CLIFF GRACE 02/07/24 Hydroxyzine HCl (Hydroxyzine Hydrochloride) 50 Mg Tab, 50 MG PO QHSP PRN, #30 TAB prn insomnia Prov:KEVIN BERMUDEZ MD 02/04/24 Methocarbamol (Methocarbamol) 500 Mg Tab, 1000 MG PO Q8HP PRN, #30 TAB prn muscle cramps Prov:KEVIN BERMUDEZ MD 02/04/24 Magnesium Citrate (MAGNESIUM CITRATE) 100 Mg Tab, 300 MG OR DAILY PRN, #30 TAB prn constipation Prov:KEVIN BERMUDEZ MD 02/04/24 Hydrocodone-Acetaminophen (Hydrocodone Bitartrate/AC 5-325 mg) 1 Tab Tab, 1 TAB PO QIDPRN, #20 TAB Prov:CRISTINE SCHMITZ MD 11/22/23 Metronidazole (Flagyl) 500 Mg Tab, 1 TAB PO TID, #21 TAB Prov:CRISTINE SCHMITZ MD 11/22/23 Levofloxacin Hemihydrate (LEVAQUIN 500 MG) 500 Mg Tab, 500 MG PO DAILY for 7 Days, #7 TAB Prov:CRISTINE SCHMITZ MD 11/22/23 Hydrocodone-Acetaminophen (Hydrocodone Bitartrate/AC 5-325 mg) 1 Tab Tab, 1 TAB PO QIDP, #20 TAB Prov:CRISTINE SCHMITZ MD 11/22/23 Levofloxacin Hemihydrate (LEVAQUIN 500 MG) 500 Mg Tab, 500 MG PO DAILY for 7 Days, #7 TAB Prov:CRISTINE SCHMITZ MD 11/22/23 Metronidazole (Flagyl) 500 Mg Tab, 500 MG PO TID, #21 TAB Prov:CRISTINE SCHMITZ MD 11/22/23 Reported Medications Losartan Potassium & Hydrochlo (Hyzaar) 1 Tab Tab, 1 TAB PO QAM for blood pressure MDD 100-25 mg 09/02/23 Alprazolam (Alprazolam) 0.25 Mg Tab, 1 PO DAILY for ptsd MDD 0.25 09/02/23 Atorvastatin Calcium (ATORVASTATIN CALCIUM) 20 Mg Tab, 1 TAB PO HS for cholesterol MDD 20 09/02/23 Aspirin (Aspirin Low Dose) 81 Mg Tab, 1 TAB PO DAILY for hx stroke MDD 81 mg 09/02/23 Escitalopram Oxalate (ESCITALOPRAM OXALATE) 10 Mg Tab, 1 TAB PO DAILY MDD 10 mg 09/02/23 Memantine Hydrochloride (Memantine HCl) 5 Mg Tab, 1 TAB PO BID for Dementia MDD 10 mg 09/02/23 Atenolol (Atenolol) 25 Mg Tab, 1 TAB PO DAILY for blood pressure MDD 25 mg 09/02/23 Hydrochlorothiazide W/Triamter (Hctz/Triamterene) 1 Cap Cap 10/29/10 Information Source: Patient Mode of Arrival: Ambulatory Severity: Moderate Timing: Days Duration: Since onset, Days Prehospital treatment: None Past Medical History PAST MEDICAL HISTORY: Cancer, COPD, CVA (X2), Dementia, High Lipids, HTN, Liver Surgical History: Cholecystectomy, , Tonsillectomy, Tubal Ligation [employer] History: No Pertinent [employer]IVE History Family History Family History: Reviewed,noncontributory to illness, Unknown Social History Smoker: Unknown Alcohol: Denies ETOH Use Drugs: Unknown Lives In: Home Constitutional: denies: chills, diaphoresis, fatigue, fever, malaise, sweats, weakness, others EENTM: denies: blurred vision, double vision, ear bleeding, ear discharge, ear drainage, ear pain, ear ringing, eye pain, eye redness, hearing loss, mouth pain, mouth swelling, nasal discharge, nose bleeding, nose congestion, nose pain, photophobia, tearing, throat pain, throat swelling, voice changes, others Respiratory: denies: cough, hemoptysis, orthopnea, SOB at rest, shortness of breath, SOB with excertion, stridor, wheezing, others Cardiovascular: denies: chest pain, dizzy spells, diaphoresis, Dyspnea on exertion, edema, irregular heart beat, left arm pain, lightheadedness, palpitations, PND, syncope, others Gastrointestinal: denies: abdomen distended, abdominal pain, blood streaked bowels, constipated, diarrhea, dysphagia, difficulty swallowing, hematemesis, melena, nausea, poor appetite, poor fluid intake, rectal bleeding, rectal pain, vomiting, others Genitourinary: denies: abnormal vagina bleeding, burning, dyspareunia, dysuria, flank pain, frequency, hematuria, incontinence, pain, , vagina discharge, urgency, others Neurological: reports: headache; denies: dizziness, fainting, left sided numbness, left sided weakness, numbness, paresthesia, pre-existing deficit, right sided numbness, right sided weakness, seizure, speech problems, tingling, tremors, weakness, others Musculoskeletal: denies: back pain, gout, joint pain, joint swelling, muscle pain, muscle stiffness, neck pain, others Integumetry: denies: bruises, change in color, change in hair/nails, dryness, laceration, lesions, lumps, rash, wounds, others Allergic/Immunocompromised: denies: Difficulty Healing, Frequent Infections, Hives, Itching, others Hematologic/Lymphatic: denies: anemia, blood clots, easy bleeding, easy bruising, swollen glands, others Endocrine: denies: excessive hunger, excessive sweating, excessive thirst, excessive urination, flushing, intolerance to cold, intolerance to heat, unexplained weight gain, unexplained weight loss, others Psychiatric: denies: anxiety, bipolar disorder, depression, hopeless, panic disorder, schizophrenia, sleepless, suicidal, others All Other Systems: Reviewed and Negative Physical Exam General Appearance: No Apparent Distress, Normal HEENT: Normal ENT Inspection, Pharynx Normal, TMs Normal Neck: Full Range of Motion, Non-Tender, Normal, Normal Inspection Respiratory: Chest Non-Tender, Lungs Clear, No Accessory Muscle Use, No Respiratory Distress, Normal Breath Sounds Cardiovascular: No Edema, No JVD, No Murmur, No Gallop, Normal Peripheral Pulses, Regular Rate/Rhythm Breast Exam: Deferred Gastrointestinal: No Organomegaly, Non Tender, No Pulsatile Mass, Normal Bowel Sounds, Soft Genitalia: Deferred Pelvic: Deferred Rectal: Deferred Extremities: No calf tenderness, Normal capillary refill, Normal inspection, Normal range of motion, Non-tender, No pedal edema Musculoskeletal : Apperance: Normal Neurologic: Alert, dough raiser II-XII nml as Tested, No Motor Deficits, Normal Affect, Normal Mood, No Sensory Deficits Cerebellar Function: Normal Reflexes: Normal Skin: Dry, Normal Color, Warm Lymphatic: No Adenopathy Was a procedure done? Was a procedure done?: No EKG EKG : Pulse Rate (adult): 119 [place]: Normal Cardiac Rhythm: ST Block: None Hypertrophy: None ST: Normal Differential Dx Considerations may include: Migraine, viral syndrome, electrolyte abnormality, ACS, CVA, TIA X-Ray, Labs, Meds, VS Vital Signs Date Time Temp Pulse Resp B/P (MAP) Pulse Ox O2 Delivery O2 Flow Rate FiO2 11/08/24 09:20 104 11/08/24 09:10 119 11/08/24 09:00 Room Air* 0 21 11/08/24 08:36 97.7 105 16 152/98 (116) 96 97.7 11/08/24 08:35 118 Lab Test 11/08/24 09:14 11/08/24 08:41 Range/Units White Blood Count 12.5 H 4.4-10.8 10^3/uL Red Blood Count 5.29 H 4.0-5.20 10^6/uL Hemoglobin 16.4 H 12.2-16.2 g/dL Hematocrit 47.3 H 36.0-46.0 % Mean Corpuscular Volume 89.3 80.0-100.0 fL Mean Corpuscular Hemoglobin 31.1 28.0-32.0 pg Mean Corpuscular Hemoglobin Concent 34.8 32.0-36.0 g/dL Red Cell Distribution Width 12.9 11.8-14.3 % Platelet Count 339 140-450 10^3/uL Mean Platelet Volume 6.5 L 6.9-10.8 fL Neutrophils (%) (Auto) 63.7 37.0-80.0 % Lymphocytes (%) (Auto) 25.9 10.0-50.0 % Monocytes (%) (Auto) 8.2 0.0-12.0 % Eosinophils (%) (Auto) 1.4 0.0-7.0 % Basophils (%) (Auto) 0.8 0.0-2.0 % Neutrophils # (Auto) 8.0 1.6-8.6 10 ^3/uL Lymphocytes # (Auto) 3.2 0.4-5.4 10 ^3/uL Monocytes # (Auto) 1.0 0-1.3 10 ^3/uL Eosinophils # (Auto) 0.2 0-0.8 10 ^3/uL Basophils # (Auto) 0.1 0-0.2 10 ^3/uL Nucleated Red Blood Cells 0.1 % Sodium Level 139 136-145 mmol/L Potassium Level 4.4 3.5-5.1 mmol/L Chloride Level 108 H 98-107 mmol/L Carbon Dioxide Level 23 20-31 mmol/L Anion Gap 8 5-15 Blood Urea Nitrogen 14 9-23 mg/dL Creatinine 0.79 0.550-1.02 mg/dL Glomerular Filtration Rate Calc 83 >90 mL/min BUN/Creatinine Ratio 17.7 10.0-20.0 Serum Glucose 94 74-106 mg/dL Calcium Level 10.7 H 8.7-10.4 mg/dL POC Glucose 114 H 70-106 mg/dl Current Medications Medications (Trade) Dose Ordered Sig/Gena Route Start Time Stop Time Status Last Admin Sodium Chloride 1,000 ml @ 1,000 mls/hr Q1H ONCE IV 11/08/24 09:00 11/08/24 09:59 11/08/24 09:31 Metoclopramide HCl (Reglan Injection) 10 mg ONCE ONCE IV 11/08/24 09:00 11/08/24 09:01 DC 11/08/24 09:30 Time of 1ST Reevaluation: 09:20 Reevaluation 1ST: Unchanged Patient Education/Counseling: Diagnosis, Treatment, Prognosis Family Education/Counseling: No Family Present Departure 1 Departure Time of Disposition: 10:26 (Patient with a worsening intractable migraine with a history of multiple CVAs in the past . We will admit patient for further workup and expert consultation) Impression: Primary Impression: Migraine Qualified Codes: G43.011 - Migraine without aura, intractable, with status migrainosus Disposition: ADMITTED INPATIENT Admit to: Med Surg Condition: Serious Critical Care Note Critical Care Time?: No Stability Stability form required: No I personally scribed for THAO LORENZO MD ([email or web address]) on 11/08/24 at 09:10. Electronically submitted by Abel Guido ([email or web address]). THAO LORENZO MD Nov 08, 2024 09:10
--- NOTE | 2024-11-08 09:26 | DVH ---
EXAM: CT HEAD WITHOUT CONTRAST INDICATION: severe headache TECHNIQUE: CT of the head without intravenous contrast. Coronal and sagittal reformatted images are s ubmitted. Radiation Dose : 1. Head: CT Dose: CTDI volume is 49.33 mGy. Dose-length product is 790.96 mGy*cm The dose indicators for CT are the volume Computed Tomography (CT) Dose Index (CTDIvol) and the Dose Length Product (DLP), and are measured in units of mGy and mGy-cm, respectively. These indicators are not patient dose, but values generated from the CT scanner acquisition factors. The report includes radiation exposure data for exposures received during this examination. All CT scans at this medical facility are performed using dose modulation techniques as appropriate to a performed exam including the following: Automated exposure control was utilized; adjustment of the MA and/or KV according to patient size; and use of iterative reconstruction technique. COMPARISON: CT HEAD WITHOUT CONTRAST on DOS: 02/04/24 FINDINGS: There is no evidence of acute intracranial hemorrhage, extra-axial collection, mass effect, midline s hift, herniation or hydrocephalus. The ventricles, sulci and cisterns are age appropriate. The cantu-white differentiation is intact. The visualized paranasal sinuses and mastoid air cells are clear. No depressed calvarial fracture. The surrounding soft tissues are unremarkable. IMPRESSION: 1. No evidence of acute intracranial abnormality.
--- NOTE | 2024-11-08 09:26 | DVH ---
CHEST RADIOGRAPH Indication: severe headache Technique: Single frontal view of the chest was obtained COMPARISON: XY CHEST PORTABLE on DOS: 02/04/24, XY CHEST PORTABLE on DOS: 11/22/23, XY CHEST PORTABLE on DOS: 09/03/23, XY CHEST XRAY 1 VIEW on DOS: 08/31/23, CHEST PORTABLE on DOS: 01/03/21 FINDINGS: Lines and Tubes: None Lungs: Mild increased interstitial prominence Pleura: No effusion. No pneumothorax. Cardiomediastinal contours: Unremarkable Bones: Unremarkable IMPRESSION: Pulmonary vascular congestion versus viral pneumonia.
[2024-11-08 09:30] LABS: Basophils # (auto) 0.1 10 ^3/uL (0-0.2); Basophils % (auto) 0.8 % (0.0-2.0); Eosinophils # (auto) 0.2 10 ^3/uL (0-0.8); Eosinophils % (auto) 1.4 % (0.0-7.0); Hematocrit 47.3 % (36.0-46.0); Hemoglobin 16.4 g/dL (12.2-16.2); Lymphocytes # (auto) 3.2 10 ^3/uL (0.4-5.4); Lymphocytes % (auto) 25.9 % (10.0-50.0); Mean Corpuscular Hemoglobin 31.1 pg (28.0-32.0); Mean Corpuscular Hgb Conc. 34.8 g/dL (32.0-36.0); Mean Corpuscular Volume 89.3 fL (80.0-100.0); Monocytes % (auto) 8.2 % (0.0-12.0); Neutrophils % (auto) 63.7 % (37.0-80.0); Nucleated Red Blood Cells % 0.1 %; Platelet Count (auto) 339 10^3/uL (140-450); Red Blood Cells 5.29 10^6/uL (4.0-5.20); Red Cell Distribution Width 12.9 % (11.8-14.3); White Blood Cell 12.5 10^3/uL (4.4-10.8)
[2024-11-08] MEDS: METOCLOPRAMIDE HCL 5MG/ml INJ 2ml VIAL IV ONE (09:30)
[2024-11-08] MEDS: SODIUM CHLORIDE 0.9% 1,000 ML IV ONE ×2 (09:31→12:34)
[2024-11-08] MEDS: ACETAMINOPHEN 325 MG TAB PO ONE (09:31)
[2024-11-08 09:34] LABS: Potassium 4.4 mmol/L (3.5-5.1); Sodium 139 mmol/L (136-145)
[2024-11-08 09:35] LABS: Anion Gap 8 (5-15); Carbon Dioxide 23 mmol/L (20-31)
[2024-11-08 09:40] LABS: BUN/Creatinine Ratio 17.7 (10.0-20.0); Blood Urea Nitrogen 14 mg/dL (9-23); Glucose 94 mg/dL (74-106)
[2024-11-08 09:42] LABS: Calcium 10.7 mg/dL (8.7-10.4); Chloride 108 mmol/L (98-107)
[2024-11-08] MEDS ORDERED: DOCUSATE SOD 100 MG CAP PO PRN (12:15)
[2024-11-08] MEDS ORDERED: ONDANSETRON HCL 4 MG/2 ML VIAL IV PRN (12:15)
[2024-11-08] MEDS ORDERED: ACETAMINOPHEN 325 MG TAB PO PRN (12:15)
--- NOTE | 2024-11-08 12:16 | DVHHP2 ---
History of Present Illness Reason for Visit: Headache History of Present Illness Marilou Perea is a 64-year-old female with past medical history of hypertension, hyperlipidemia, dementia, CVA, COPD, and chronic back/neck pain, who states about 3 months ago she quit taking all her medications because she didn't want to be taking them anymore. She came to the hospital today for recurrent headache. Patient states she has woken up with a headache every morning for the past week. She states it usually subsides after a couple hours. On Friday the headaches was so severe she stayed in bed most of the day. She also states that she has chronic neck issues and that could be causing her pain. She came to the hospital today to make sure there was not something more serious happening. Cardiovascular: HTN, hyperipidemia Pulmonary: COPD WEED BURNER: Other (CVA, Dementia) Past Surgical History: Cholecystectomy, (x 1), Tubal Ligation, Tonsillectomy Smoke: <1 pack per day ALCOHOL: none Drugs: Marijuana Lives: with Family Domestic Violence: Neg Review of Systems Constitutional: Yes: Other (Headache); No: Fever, Chills, Sweats, Weakness, Malaise Eyes: No: Pain, Vision change, Conjunctivae inflammation, Eyelid inflammation, Other, Redness ENT: No: Ear pain, Ear discharge, Nose pain, Nose discharge, Nose congestion, Mouth pain, Mouth swelling, Throat pain, Throat swelling, Other Respiratory: No: Cough, Dry, Shortness of breath, SOB with excertion, Wheezing, Hemoptysis, Pleuritic Pain, Sputum, Wheezing, Other Cardiovascular: No: Chest Pain, Palpitations, Orthopnea, Paroxysmal Noc. Dyspnea, Edema, Lt Headedness, Other Gastrointestinal: No: Nausea, Vomiting, Abdominal Pain, Diarrhea, Constipation, Melena, Hematochezia, Other Genitourinary: No Dysuria, No Frequency, No Incontinence, No Hematuria, No Retention, No Other Musculoskeletal: No: other, neck pain, shoulder pain, arm pain, back pain, hand pain, leg pain, foot pain Skin: No: Rash, Lesions, Jaundice, Bruising, Other Neurological: No: Weakness, Numbness, Incoordination, Change in speech, Confusion, Seizures, Other Allergies: Coded Allergies: NO KNOWN ALLERGIES (Unverified , 04/06/24) Medications Current Medications Medications Dose Ordered Sig/Gena Route Start Time Stop Time Status Last Admin Dose Admin Acetaminophen/ Hydrocodone Bitart 1 tab Q4HP PRN PO 11/08/24 12:15 UNV Ondansetron HCl 4 mg Q4HP PRN IV 11/08/24 12:15 UNV Docusate Sodium 100 mg BIDPRN PRN PO 11/08/24 12:15 UNV Acetaminophen 650 mg Q6HP PRN PO 11/08/24 12:15 UNV Exam Vital Signs Vital Signs Date Time Temp Pulse Resp B/P (MAP) Pulse Ox O2 Delivery O2 Flow Rate FiO2 11/08/24 10:00 97.8 74 14 139/82 (101) 96 97.8 11/08/24 09:00 Room Air* 0 21 General Appearance: Alert, Oriented X3, Cooperative, mild distress HEENT: Atraumatic, PERRLA, EOMI Respiratory: Clear to auscultation, Normal air movement Cardiovascular: Regular rate, Normal S1, Normal S2, No murmurs Abdominal: Normal bowel sounds, Soft, No tenderness, No hepatospenomegaly Extremities: No clubbing, No cyanosis, No edema, Normal pulses Skin: No rashes, No breakdown, No significant lesion Neuro: Normal gait, Normal speech, Strength at 5/5 X4 ext Psych/Mental Status: Mental status NL, Mood NL Labs/Xrays Labs Test 11/08/24 09:14 11/08/24 08:41 Range/Units White Blood Count 12.5 H 4.4-10.8 10^3/uL Red Blood Count 5.29 H 4.0-5.20 10^6/uL Hemoglobin 16.4 H 12.2-16.2 g/dL Hematocrit 47.3 H 36.0-46.0 % Mean Corpuscular Volume 89.3 80.0-100.0 fL Mean Corpuscular Hemoglobin 31.1 28.0-32.0 pg Mean Corpuscular Hemoglobin Concent 34.8 32.0-36.0 g/dL Red Cell Distribution Width 12.9 11.8-14.3 % Platelet Count 339 140-450 10^3/uL Mean Platelet Volume 6.5 L 6.9-10.8 fL Neutrophils (%) (Auto) 63.7 37.0-80.0 % Lymphocytes (%) (Auto) 25.9 10.0-50.0 % Monocytes (%) (Auto) 8.2 0.0-12.0 % Eosinophils (%) (Auto) 1.4 0.0-7.0 % Basophils (%) (Auto) 0.8 0.0-2.0 % Neutrophils # (Auto) 8.0 1.6-8.6 10 ^3/uL Lymphocytes # (Auto) 3.2 0.4-5.4 10 ^3/uL Monocytes # (Auto) 1.0 0-1.3 10 ^3/uL Eosinophils # (Auto) 0.2 0-0.8 10 ^3/uL Basophils # (Auto) 0.1 0-0.2 10 ^3/uL Nucleated Red Blood Cells 0.1 % Sodium Level 139 136-145 mmol/L Potassium Level 4.4 3.5-5.1 mmol/L Chloride Level 108 H 98-107 mmol/L Carbon Dioxide Level 23 20-31 mmol/L Anion Gap 8 5-15 Blood Urea Nitrogen 14 9-23 mg/dL Creatinine 0.79 0.550-1.02 mg/dL Glomerular Filtration Rate Calc 83 >90 mL/min BUN/Creatinine Ratio 17.7 10.0-20.0 Serum Glucose 94 74-106 mg/dL Calcium Level 10.7 H 8.7-10.4 mg/dL POC Glucose 114 H 70-106 mg/dl EXAM: CT HEAD WITHOUT CONTRAST FINDINGS: There is no evidence of acute intracranial hemorrhage, extra-axial collection, mass effect, midline shift, herniation or hydrocephalus. The ventricles, sulci and cisterns are age appropriate. The cantu-white differentiation is intact. The visualized paranasal sinuses and mastoid air cells are clear. No depressed calvarial fracture. The surrounding soft tissues are unremarkable. IMPRESSION: 1. No evidence of acute intracranial abnormality. CHEST RADIOGRAPH FINDINGS: Lines and Tubes: None Lungs: Mild increased interstitial prominence Pleura: No effusion. No pneumothorax. Cardiomediastinal contours: Unremarkable Bones: Unremarkable IMPRESSION: Pulmonary vascular congestion versus viral pneumonia. Assessment/Plan Assessment/Plan Assessment: Migraine, Hypertension, Hyperlipidemia, Dementia, Plan: Admit to Med-Surg, Pain management, IV hydration, Home medications reconciled, Plan discussed with: Patient My Orders Orders - LEONA NEFF Procedure Category Date Status Time Admit ADMIT 11/08/24 Transmitted 12:05 Code Status CODE 11/08/24 Transmitted 12:05 2 Gm Sodium Diet DIET 11/08/24 Transmitted Lunch Hydrocodone-Acet PHA 11/08/24 Logged 5/325mg Tab ([place] 12:15 Ondansetron Hcl PHA 11/08/24 Logged (Zofran) 12:15 Docusate Sodium PHA 11/08/24 Logged Capsule (Colace 12:15 Complete Blood Count LAB 11/09/24 Verified 04:00 Comprehensive LAB 11/09/24 Verified Metabolic Panel 04:00 Condition: Serious SCOTT 11/08/24 In Process 12:05 Acetaminophen Tablet PHA 11/08/24 Logged (Tylenol Tablet) 12:15 Ketorolac Injection PHA 11/08/24 Logged (Toradol Injection) 12:15 Date of Service: Nov 08, 2024 Billing Provider: LEONA NEFF Common Visit Codes: [id number] INP/OBS CARE (MOD) LEONA NEFF Nov 08, 2024 12:16
[2024-11-08] MEDS: KETOROLAC TROMETH 30 MG/ML 1ML VIAL IV ONE (13:45)
[2024-11-08 14:05] VITALS: BP 155/83; PULSE 98; RESP 17; TEMP 98.5; O2SAT 94
[2024-11-08 14:21] LABS: Urine Bacteria None Seen /hpf (None Seen)
[2024-11-08 14:26] LABS: Urine Blood Negative /uL (Negative); Urine Clarity Clear (Clear); Urine Color Light-Yellow (Yellow); Urine Protein, UAD Negative (Negative); Urine Squamous Epithelial Cell FEW /hpf (<5); Urine Urobilinogen Normal (Negative); Urine WBC < 1 /HPF (0-5); Urine pH 5.5 (5.0-9.0)
[2024-11-08 16:40] VITALS: BP 129/87; PULSE 86; RESP 18; TEMP 98.4; O2SAT 94
[2024-11-08] MEDS: HYDROcodone-ACET 5/325MG TAB PO PRN (18:53)
[2024-11-08 20:23] VITALS: BP 150/75; PULSE 95; RESP 19; TEMP 97.6; O2SAT 96
[2024-11-08 20:58] VITALS: PULSE 78; O2SAT 96
[2024-11-08 21:00] VITALS: BP 174/85; PULSE 83; RESP 20; TEMP 98.4; O2SAT 94
[2024-11-08] MEDS: MEMANTINE HCL 5 MG TAB PO SCH (22:00)
[2024-11-08] MEDS: ATORVASTATIN 20 MG TAB PO SCH (22:00)
[2024-11-08 22:16] VITALS: BP 148/68; PULSE 78
[2024-11-09 01:00] VITALS: BP 136/65; PULSE 89; RESP 18; TEMP 96.2; O2SAT 95
[2024-11-09 05:00] VITALS: BP 158/83; PULSE 85; RESP 20; TEMP 98.1; O2SAT 93
[2024-11-09 06:09] VITALS: BP 145/72; PULSE 91
[2024-11-09 06:19] LABS: Basophils # (auto) 0.1 10 ^3/uL (0-0.2); Basophils % (auto) 0.9 % (0.0-2.0); Eosinophils # (auto) 0.2 10 ^3/uL (0-0.8); Eosinophils % (auto) 2.5 % (0.0-7.0); Hematocrit 41.9 % (36.0-46.0); Hemoglobin 14.4 g/dL (12.2-16.2); Lymphocytes # (auto) 2.7 10 ^3/uL (0.4-5.4); Lymphocytes % (auto) 29.6 % (10.0-50.0); Mean Corpuscular Hemoglobin 30.8 pg (28.0-32.0); Mean Corpuscular Hgb Conc. 34.3 g/dL (32.0-36.0); Mean Corpuscular Volume 89.8 fL (80.0-100.0); Monocytes # (auto) 0.9 10 ^3/uL (0-1.3); Monocytes % (auto) 10.1 % (0.0-12.0); Neutrophils # (auto) 5.2 10 ^3/uL (1.6-8.6); Neutrophils % (auto) 56.9 % (37.0-80.0); Nucleated Red Blood Cells % 0.1 %; Platelet Count (auto) 269 10^3/uL (140-450); Red Blood Cells 4.66 10^6/uL (4.0-5.20); Red Cell Distribution Width 13.2 % (11.8-14.3); White Blood Cell 9.2 10^3/uL (4.4-10.8)
[2024-11-09 06:34] LABS: Albumin 3.9 g/dL (3.2-4.8); Anion Gap 7 (5-15); BUN/Creatinine Ratio 26.7 (10.0-20.0); Blood Urea Nitrogen 16 mg/dL (9-23); Calcium 9.5 mg/dL (8.7-10.4); Carbon Dioxide 24 mmol/L (20-31); Glucose 94 mg/dL (74-106); Potassium 3.8 mmol/L (3.5-5.1); Sodium 141 mmol/L (136-145); Total Protein 6.4 g/dL (5.7-8.2)
[2024-11-09 06:44] LABS: Alanine Aminotransferase < 9 U/L (7-40); Alkaline Phosphatase 125 U/L (46-116); Bilirubin, Total 0.3 mg/dL (0.2-1.0); Chloride 110 mmol/L (98-107)
[2024-11-09 07:33] LABS: Aspartate Aminotransferase 12 U/L (13-40)
[2024-11-09 08:00] VITALS: PULSE 82; RESP 18; O2SAT 97
[2024-11-09 08:30] VITALS: BP 160/74; PULSE 82; RESP 17; TEMP 97.7; O2SAT 97
[2024-11-09] MEDS: ASPirin-EC 81 mg tab PO SCH (09:05)
[2024-11-09] MEDS: SUMAtriptan SUCCINATE 25 MG TAB PO ONE (09:05)
[2024-11-09] MEDS: ATENOLOL 25 MG TAB PO SCH (09:07)
--- NOTE | 2024-11-09 11:07 | ECG ---
[facility] Test Date: 2024-11-08 Test Time: 08:35:47 Pat Name: ALANNAH HSU Department: ER Room: 0279 B Gender: F Manager Learning: SANDRINE : 1960 Requested By: THAO LORENZO Order Number: [id number] Reading MD: Aric Turcios Measurements Intervals [place] Rate: 118 P: 71 MI: 152 QRS: 87 QRSD: 115 T: 51 QT: 362 QTc: 508 Interpretive Statements Sinus tachycardia Paired ventricular premature complexes Left atrial enlargement Nonspecific intraventricular conduction delay Borderline T abnormalities, anterior leads Baseline wander in lead(s) V3,V4 Electronically Signed On 11-10-2024 20:58:00 PDT by Aric Turcios Please click the below link to view image of tracing.
[2024-11-09] MEDS ORDERED: SUMA100T15 PO (13:42)
[2024-11-09 15:04] VITALS: PULSE 82
[2024-11-09] MEDS ORDERED: MELATONIN 5 MG TAB PO ONE (22:00)
== END 2024-11-09 15:30 | disposition home or self-care (01) | DRG 103 ==
LOC: ER 08:22 → OVERFLOW 12:05 → WEST WING 20:59
PROVIDERS: ADMIT Hospitalist; ATTEND Hospitalist
DX: G43.011 Migraine without aura, intractable, with status migrainosus (principal); I10 Essential (primary) hypertension; E78.5 Hyperlipidemia, unspecified; J44.9 Chronic obstructive pulmonary disease, unspecified; G89.29 Other chronic pain; M54.2 Cervicalgia; M54.9 Dorsalgia, unspecified; F03.90 Unspecified dementia, unspecified severity, without behavioral disturbance, psychotic disturbance, mood disturbance, and anxiety; Z90.49 Acquired absence of other specified parts of digestive tract; Z98.891 History of uterine scar from previous surgery; Z79.891 Long term (current) use of opiate analgesic; Z79.1 Long term (current) use of non-steroidal anti-inflammatories (NSAID); Z79.899 Other long term (current) drug therapy; Z86.73 Personal history of transient ischemic attack (TIA), and cerebral infarction without residual deficits; Z87.891 Personal history of nicotine dependence; Z79.82 Long term (current) use of aspirin
CPT/HCPCS: 36415; 70450; 71045; 80048; 80053; 81001; 82962; 85025; 93005; 96361; 96374; 96375; G0378; J1885

== ENCOUNTER 2025-01-06 12:04 | Emergency (ER) | payer OTHER, SELFPAY ==
[~2025-01-06] VITALS: Ht 170.2 cm; Wt 82.0 kg
[~2025-01-06 12:04] MED LIST changes: -LEVO500T91 PO; -METR-344 PO; +SUMA100T15 PO
--- NOTE | 2025-01-06 13:04 | ED.PDOC ---
Musculoskeletal HPI Comments A 64-YEAR-OLD FEMALE PRESENTS WITH A CHIEF COMPLAINT OF LEFT FOOT PAIN X YEARS, BUT WORSENING THE LAST 2 MONTHS. PATIENT REPORTS THAT THE SYMPTOMS HAVE BEEN GOING ON FOR ABOUT A FEW YEARS, BUT HAS BEEN WORSENING OVER THE PAST SEVERAL MONTHS. PATIENT MENTIONS THAT SHE NOW HAS CHRONIC FOOT PAIN. PATIENT DENIES ANY INJURIES OR RECENT TRAUMAS WHAT WOULD CAUSE THIS. Chief Complaint: Lower Extremity Time Seen by MD: 12:40 Primary Care Provider: KONSTANTIN Reviewed Notes: Nurses Notes, Medications, Allergies Allergies: Coded Allergies: NO KNOWN ALLERGIES (Unverified , 04/06/24) Home Meds Active Scripts Hydrocodone-Acetaminophen (Hydrocodone Bitartrate/AC 10-325 mg) 1 Tab Tab, 1 TAB PO BID, #10 TAB Prov:CLIFF GRACE 01/06/25 Sumatriptan Succinate (Sumatriptan Succinate) 100 Mg Tab, 100 MG PO DAILY for 30 Days, #30 TAB Prov:MUKESH CAPONE MD 11/09/24 Prednisone (Prednisone) 20 Mg Tab, 40 MG PO DAILY, #20 TAB Prov:CLIFF GRACE 03/06/24 Hydrocodone-Acetaminophen (Hydrocodone Bitartrate/AC 5-325 mg) 1 Tab Tab, 1 TAB PO TID, #10 TAB Prov:CLIFF GRACE 03/06/24 Lidocaine (Anorectal) (Lidocaine 5%) 5 % Cre, 5 % EX BID, #30 CRE Prov:CLIFF GRACE 02/07/24 Hydrocortisone Acetate (Anusol-Hc) 25 Mg Sup, 1 SUPP [place] BID, #14 SUPP Prov:CLIFF GRACE 02/07/24 Hydroxyzine HCl (Hydroxyzine Hydrochloride) 50 Mg Tab, 50 MG PO QHSP PRN, #30 TAB prn insomnia Prov:KEVIN BERMUDEZ MD 02/04/24 Methocarbamol (Methocarbamol) 500 Mg Tab, 1000 MG PO Q8HP PRN, #30 TAB prn muscle cramps Prov:KEVIN BERMUDEZ MD 02/04/24 Magnesium Citrate (MAGNESIUM CITRATE) 100 Mg Tab, 300 MG OR DAILY PRN, #30 TAB prn constipation Prov:KEVIN BERMUDEZ MD 02/04/24 Hydrocodone-Acetaminophen (Hydrocodone Bitartrate/AC 5-325 mg) 1 Tab Tab, 1 TAB PO QIDPRN, #20 TAB Prov:CRISTINE SCHMITZ MD 11/22/23 Hydrocodone-Acetaminophen (Hydrocodone Bitartrate/AC 5-325 mg) 1 Tab Tab, 1 TAB PO QIDP, #20 TAB Prov:CRISTINE SCHMITZ MD 11/22/23 Reported Medications Losartan Potassium & Hydrochlo (Hyzaar) 1 Tab Tab, 1 TAB PO QAM for blood pressure MDD 100-25 mg 09/02/23 Alprazolam (Alprazolam) 0.25 Mg Tab, 1 PO DAILY for ptsd MDD 0.25 09/02/23 Atorvastatin Calcium (ATORVASTATIN CALCIUM) 20 Mg Tab, 1 TAB PO HS for cholesterol MDD 20 09/02/23 Aspirin (Aspirin Low Dose) 81 Mg Tab, 1 TAB PO DAILY for hx stroke MDD 81 mg 09/02/23 Escitalopram Oxalate (ESCITALOPRAM OXALATE) 10 Mg Tab, 1 TAB PO DAILY MDD 10 mg 09/02/23 Memantine Hydrochloride (Memantine HCl) 5 Mg Tab, 1 TAB PO BID for Dementia MDD 10 mg 09/02/23 Atenolol (Atenolol) 25 Mg Tab, 1 TAB PO DAILY for blood pressure MDD 25 mg 09/02/23 Hydrochlorothiazide W/Triamter (Hctz/Triamterene) 1 Cap Cap 10/29/10 Information Source: Patient Mode of Arrival: Ambulatory Location: Left Extremity Location: Foot Timing: Months Prehospital treatment: None Severity: Moderate Able to Move Extremity: Yes Bear Weight: Fully Pain: Moderate Hand Dominance: Right Mechanism: No Trauma Circumstances: Spontaneous Onset of Symptoms: Spontaneous Symptoms: Pain Last Tetanus: UTD Past Medical History PAST MEDICAL HISTORY: Cancer, COPD, CVA, Dementia, High Lipids, HTN, Liver Past Medical History (Other): CHRONIC LEFT FOOT PAIN Surgical History: Cholecystectomy, , Tonsillectomy, Tubal Ligation DERMATOLOGICAL SURGEON History: No Pertinent DERMATOLOGICAL SURGEON History Family History Family History: Reviewed,noncontributory to illness, Unknown Social History Smoker: Unknown Alcohol: Denies ETOH Use Drugs: Unknown Lives In: Home Constitutional: denies: chills, diaphoresis, fatigue, fever, malaise, sweats, weakness, others EENTM: denies: blurred vision, double vision, ear bleeding, ear discharge, ear drainage, ear pain, ear ringing, eye pain, eye redness, hearing loss, mouth pain, mouth swelling, nasal discharge, nose bleeding, nose congestion, nose pain, photophobia, tearing, throat pain, throat swelling, voice changes, others Respiratory: denies: cough, hemoptysis, orthopnea, SOB at rest, shortness of breath, SOB with excertion, stridor, wheezing, others Gastrointestinal: denies: abdomen distended, abdominal pain, blood streaked bowels, constipated, diarrhea, dysphagia, difficulty swallowing, hematemesis, melena, nausea, poor appetite, poor fluid intake, rectal bleeding, rectal pain, vomiting, others Genitourinary: denies: abnormal vagina bleeding, burning, dyspareunia, dysuria, flank pain, frequency, hematuria, incontinence, pain, , vagina discharge, urgency, others Neurological: denies: dizziness, fainting, headache, left sided numbness, left sided weakness, numbness, paresthesia, pre-existing deficit, right sided numbness, right sided weakness, seizure, speech problems, tingling, tremors, weakness, others Musculoskeletal: reports: joint pain, muscle pain; denies: back pain, gout, joint swelling, muscle stiffness, neck pain, others Integumetry: denies: bruises, change in color, change in hair/nails, dryness, laceration, lesions, lumps, rash, wounds, others Allergic/Immunocompromised: denies: Difficulty Healing, Frequent Infections, Hives, Itching, others Hematologic/Lymphatic: denies: anemia, blood clots, easy bleeding, easy bruising, swollen glands, others Endocrine: denies: excessive hunger, excessive sweating, excessive thirst, excessive urination, flushing, intolerance to cold, intolerance to heat, unexplained weight gain, unexplained weight loss, others Psychiatric: denies: anxiety, bipolar disorder, depression, hopeless, panic disorder, schizophrenia, sleepless, suicidal, others All Other Systems: Reviewed and Negative Physical Exam General Appearance: No Apparent Distress, Normal, Other (ANXIOUS ) HEENT: Normal ENT Inspection, PERRL/EOMI, Pharynx Normal, TMs Normal Neck: Full Range of Motion, Non-Tender, Normal, Normal Inspection Respiratory: Chest Non-Tender, Lungs Clear, No Accessory Muscle Use, No Respiratory Distress, Normal Breath Sounds Cardiovascular: No Edema, No JVD, No Murmur, No Gallop, Normal Peripheral Pulses, Regular Rate/Rhythm Breast Exam: Deferred Gastrointestinal: No Organomegaly, Non Tender, No Pulsatile Mass, Normal Bowel Sounds, Soft Genitalia: Deferred Pelvic: Deferred Rectal: Deferred Extremities: No calf tenderness, Normal capillary refill, Normal inspection, Normal range of motion, No pedal edema, Tender (ON LEFT DORSAL FOOT, NO BONY TENDERNESS, SWELLING AND DEFORMITY. ) Musculoskeletal : Apperance: Normal Neurologic: Alert, doll surgeon II-XII nml as Tested, No Motor Deficits, Normal Affect, Normal Mood, No Sensory Deficits Cerebellar Function: Normal Reflexes: Normal Skin: Dry, Normal Color, Warm Peripheral Pulses: 2+ carotid (R), 2+ carotid (L), 2+ dorsalis pedis (R), 2+ dorsalis pedis (L) Lymphatic: No Adenopathy Was a procedure done? Was a procedure done?: No Differential Diagnosis EXT Differential Diagnosis: DJD, Strain, Arthritis, Bursitis, Other (CHRONIC LEFT FOOT PAIN ) X-Ray, Labs, Meds, VS Vital Signs Date Time Temp Pulse Resp B/P (MAP) Pulse Ox O2 Delivery O2 Flow Rate FiO2 01/06/25 14:41 97.8 86 17 169/93 (118) 97 97.8 01/06/25 14:20 88 17 97 Room Air 01/06/25 14:19 98.2 88 18 198/96 (130) 97 98.2 01/06/25 13:17 179/98 01/06/25 12:05 97.4 93 18 182/109 94 97.4 Current Medications Medications (Trade) Dose Ordered Sig/Gena Route Start Time Stop Time Status Last Admin Clonidine HCl (Catapres Tablet) 0.2 mg ONCE ONCE PO 01/06/25 13:15 01/06/25 13:16 DC 01/06/25 13:17 Acetaminophen/ Hydrocodone Bitart ([place] 10/325MG Tab) 1 tab ONCE ONCE PO 01/06/25 13:45 01/06/25 13:46 DC 01/06/25 13:52 PATIENT: ALANNAH HSU ANNACCT: [id number]: [id number] : 1960 LOC: ER ROOM / BED: / AGE / SEX: 64 / F ADM STATUS: REG ER SERVICE 1240 ORDERING PHYSICIAN: CLIFF GRACE PROCEDURE(s): LFOOT - L FOOT 3 VIEW XRAY REASON: PAIN, NO INJURY ORDER NUMBER(s): [id number], ACCESSION NUMBER(s): [id number] XY L FOOT 3 VIEW XRAY, INDICATION: PAIN, NO INJURY TECHNICAL DATA: Frontal, oblique and lateral views were obtained of the left foot. COMPARISON: None FINDINGS: No fracture is identified. Joint spaces are maintained. Alignment is anatomic. The hallux sesamoids appear normal. Soft tissues are within normal limits. IMPRESSION: No acute fracture or dislocation of the left foot. ATED BY: ANUJ SEBASTIAN MD DICTATED DATE/TIME: 01/06/251321 SIGNED BY: ANUJ SEBASTIAN MD SIGNED DATE/TIME: 01/06/25 132 CC: X-Ray, Labs, Meds, VS Comment EXTERNAL MEDICAL RECORDS REVIEWED: [NONE] INDEPENDENT HISTORIANS: [NONE] SOCIAL DETERMINANTS OF HEALTH: [NONE] LABS ORDERED: NONE REVIEWED AND INTERPRETED RESULTS: NONE IMAGING ORDERED: NONE TREATMENTS ORDERED: CLONIDINE 0.2MG PO AND NORCO 10/325 PO PROCEDURES PERFORMED: NONE CRITICAL CARE TIME: NONE I HAVE DISCUSSED THE PATIENT WITH THE ATTENDING PHYSICIAN DR. RUBEN RODRIGUEZ AND SHE AGREES WITH THE PATIENT'S PLAN OF CARE AND DISPOSITION. BASED ON HISTORY OF PRESENT ILLNESS, AND PHYSICAL EXAM, PATIENT WILL BE DISCHARGED HOME. DISCUSSED PLAN FOR DISCHARGE HOME WITH RX [NORCO 10/325]. MEDICATION WARNINGS GIVEN. SHARED DECISION MAKING: DISCUSSED WITH PATIENT THAT THEIR WORKUP WAS NORMAL. PATIENT INSTRUCTED TO FOLLOW UP WITH PRIMARY CARE PROVIDER IN 1-2 DAYS FOR RE- EVALUATION OF SYMPTOMS. PATIENT VERBALIZES UNDERSTANDING TO RETURN TO ED FOR NEW OR WORSENING SYMPTOMS OR IF FOLLOW UP WITH PCP CANNOT BE OBTAINED. PATIENT FEELS COMFORTABLE GOING HOME AT THIS TIME. ALL QUESTIONS ADDRESSED AT TIME OF DISCHARGE. Time of 1ST Reevaluation: 14:47 Reevaluation 1ST: Improved Patient Education/Counseling: Diagnosis, Treatment, Need For Follow Up Family Education/Counseling: Diagnosis, Treatment, Prognosis, Need For Follow Up Medical Screening: No EMC Exist At This Time Departure 1 Departure Time of Disposition: 15:00 Impression: Primary Impression: Chronic foot pain Qualified Codes: M79.672 - Pain in left foot; G89.29 - Other chronic pain Additional Impression: Uncontrolled hypertension Disposition: HOME / SELF CARE / HOMELESS Condition: Stable Additional Instructions: FOLLOW-UP WITH PCP IN 1 TO 2 DAYS. TAKE MEDICATIONS PRESCRIBED. RETURN TO ED FOR ANY NEW OR WORSENING SYMPTOMS. e-Prescriptions Hydrocodone-Acetaminophen (Hydrocodone Bitartrate/AC 10-325 mg) 1 Tab Tab 1 TAB PO BID, #10 TAB Prov: CLIFF GRACE 01/06/25 Discharged With: Self Critical Care Note Critical Care Time?: No Stability Stability form required: No Heart Score Heart Score: Heart Score Response (Comments) Value History N/A 0 EKG N/A 0 Age N/A 0 Risk Factors N/A 0 Troponin N/A 0 Total 0 I personally scribed for CLIFF GRACE ([email or web address]) on 01/06/25 at 13:04. Electronically submitted by Buck Powers ([email or web address]). I personally scribed for CLIFF GRACE ([email or web address]) on 01/06/25 at 14:43. Electronically submitted by Buck Powers ([email or web address]). CLIFF GRACE Jan 06, 2025 13:04
--- NOTE | 2025-01-06 13:24 | DVH ---
XY L FOOT 3 VIEW XRAY, INDICATION: PAIN, NO INJURY TECHNICAL DATA: Frontal, oblique and lateral views were obtained of the left foot. COMPARISON: None FINDINGS: No fracture is identified. Joint spaces are maintained. Alignment is anatomic. The hallux sesamoids a ppear normal. Soft tissues are within normal limits. IMPRESSION: No acute fracture or dislocation of the left foot.
[2025-01-06] MEDS: HYDROcodone-ACET 10/325MG TAB PO ONE (13:52)
[2025-01-06 14:41] VITALS: BP 169/93; PULSE 86; RESP 17; TEMP 97.8; O2SAT 97
[2025-01-06] MEDS ORDERED: HYDR-4798 PO (14:43)
== END 2025-01-06 14:40 | disposition home or self-care (01) ==
LOC: ER 12:04
DX: G89.29 Other chronic pain (principal); M79.672 Pain in left foot; I10 Essential (primary) hypertension; F03.90 Unspecified dementia, unspecified severity, without behavioral disturbance, psychotic disturbance, mood disturbance, and anxiety; F17.200 Nicotine dependence, unspecified, uncomplicated; J44.9 Chronic obstructive pulmonary disease, unspecified; Z79.82 Long term (current) use of aspirin; Z79.899 Other long term (current) drug therapy; Z86.73 Personal history of transient ischemic attack (TIA), and cerebral infarction without residual deficits; Z90.49 Acquired absence of other specified parts of digestive tract; Z90.89 Acquired absence of other organs; Z98.51 Tubal ligation status
CPT/HCPCS: 73630